=== PATIENT | female | born 1955 | race Caucasian/White ===

== ENCOUNTER 2019-12-18 09:30 | Outpatient (CLI) | payer MEDICARE, MEDICAID, SELFPAY ==
--- NOTE | 2019-12-18 09:39 | CT_ITS ---
WS: [id number] CT CHEST, ABDOMEN AND PELVIS WITHOUT CONTRAST HISTORY: LYMPHADENOPATHY TECHNIQUE: Contiguous 5 mm axial imaging performed through the chest, abdomen and pelvis without IV c ontrast, oral contrast has been provided. Coronal and sagittal reformats chest. Coronal and sagittal reformats through the abdomen and pelvis. All CT scans at [facility] use at least one of these dose optimization techniques: automated exposure control; mA and/or kV adjustment per patient s ize (includes targeted exams where dose is matched to clinical indication); or iterative reconstructi on. CONTRAST: None DLP: 939.24 mGy.cm COMPARISON: 10/31/2018 and 05/12/[address]: Hyperinflated lungs with mild groundglass attenuation. No pulmonary mass or nodule. No pleu ral or pericardial effusion. Mediastinal and hilar lymph nodes are reidentified and unchanged. The la rgest is subcarinal measuring 8 mm. Scattered calcification within the aorta with no aneurysm. Mild c oronary artery calcifications. No cardiomegaly. Small hiatal hernia. Small amount of fluid and oral c ontrast in the distal esophagus. Abdomen CT: Liver and spleen are negative. Gallbladder is slightly contracted. Mildly atrophic pancre as and kidneys. No solid mass identified. No adrenal mass. No free fluid or adenopathy. Moderate calc ification within the aorta. Pelvic CT: No free fluid in the pelvis. Mild thickening of the descending and sigmoid colon with no d iscrete mass. No diverticulosis. Mild RIGHT convex curvature thoracic spine and LEFT convex curvature lumbar spine. Bones are deminera lized. No osteoblastic or osteolytic disease. CT/CT chest abd pel wo con IMPRESSION: 1. No significant lymphadenopathy within the chest, abdomen or pelvis. Benign, subcentimeter hilar and mediastinal lymph nodes are stable. 2. Moderate atherosclerosis aorta. 3. Emphysema. 4. Normal size spleen.
[2019-12-18 10:21] LABS: Basophils # 0.1 10^3/uL (0.0-0.1); Basophils % 0.7 %; Eosinophils # 0.4 10^3/uL (0.0-0.8); Eosinophils % 3.3 %; Hemoglobin 13.8 g/dL (11.5-15.3); Lymphocytes # 1.9 10^3/uL (0.8-4.8); Lymphocytes % 17.8 %; Mean Corpuscular HGB Conc 32.1 g/dL (30.0-36.0); Mean Corpuscular Hemoglobin 29.1 pg (28.0-34.0); Mean Corpuscular Volume 90.7 fL (81-99); Mean Platelet Volume 10.4 fL (7.4-10.4); Monocytes # 0.7 10^3/uL (0.2-0.9); Monocytes % 6.8 %; Neutrophils # 7.4 10^3/uL (1.8-7.7); Neutrophils % 70.9 %; Nucleated Red Blood Cells % 0 %; Platelet Count 187 10^3/cmm (130-400); Red Blood Count 4.74 10^6/uL (4.1-5.3); Red Cell Distribution Width 12.7 % (12.1-15.1); White Blood Count 10.5 10^3/uL (4.0-10.0)
[2019-12-18 10:39] LABS: Alanine Aminotransferase 13 U/L (0-33); Albumin Level 4.2 g/dL (3.5-5.2); Alkaline Phosphatase 95 IU/L (35-105); Anion Gap 18.6 (5-19); Aspartate Amino Transferase 16 U/L (0-32); Blood Urea Nitrogen 26 mg/dL (8-23); Calcium 10.6 mg/dL (8.5-10.5); Carbon Dioxide 26 mmol/L (22-29); Chloride 100 mmol/L (98-107); Globulin 3.2 g/dL (1.3-4.6); Glomerular Filtration Rate 35.2 mL/min (90-130); Glucose 104 mg/dL (65-115); Lactate Dehydrogenase 183 U/L (135-214); Potassium 4.6 mmol/L (3.5-5.1); Sodium 140 mmol/L (136-145); Total Bilirubin 0.3 mg/dL (0.15-1.2); Total Protein 7.4 g/dL (6.6-8.7)
[2019-12-18 11:29] LABS: Erythrocyte Sedimentation Rate 35 mm/hr (0-15)
== END 2019-12-18 09:31 | disposition home or self-care (01) ==
LOC: ONCMED 09:34
PROVIDERS: Family Provider Family Medicine; PCP Family Medicine; Visit Provider Internal Medicine Medical Oncology
DX: R59.1 Generalized enlarged lymph nodes (principal); J43.9 Emphysema, unspecified; I25.10 Atherosclerotic heart disease of native coronary artery without angina pectoris
CPT/HCPCS: 36415; 71250; 74176; 80053; 83615; 85025; 85651

== ENCOUNTER 2019-12-22 15:03 | Outpatient (CLI) | payer MEDICARE, MEDICAID, SELFPAY ==
--- NOTE | 2019-12-26 07:03 | ONC FU_ITS ---
Dr. Knight Patient Follow-Up Note Patient: Jeannette Perry Unit #: [id number]: [id number] Dicatated By: Christopher Knight M.D.Date of Visit:Dec 22, 2019 Onc Med Follow-up/Prog Note Chief Complaint: Lymphadenopathy. History of Present Illness: This is a 64 year-old woman with scleroderma and lymphadenopathy. A left submandibular lymph node biopsy in April 2018 was felt to be consistent with Deepa lymphadenopathy. She was diagnosed with scleroderma at least 15 years ago. At one time she did have methotrexate therapy for about a year. She has otherwise not been on any specific treatment. On 05/12/2018 she had presented to the emergency room with multiple complaints including weakness, chills, and muscle aches. She was noted to have a left submandibular region mass. Neck CT confirmed the presence of a left submandibular gland space soft tissue mass with edema of the overlying soft tissue and skin. There were additional shotty subcentimeter lymph nodes bilaterally. A 2.1 x 1.6 cm left thyroid gland nodule appeared to be consistent with non-simple cyst. Also noted were numerous bilateral axillary and mediastinal subcentimeter shotty lymph nodes, felt to be nonspecific. There was evidence of severe emphysema in the upper lung matthew. Her CT abdomen/pelvis at that time showed mild splenomegaly and nonspecific mesenteric, retroperitoneal, and inguinal subcentimeter shotty lymph nodes. There were no acute intra-abdominal/pelvic findings. On 05/14/2018 she underwent excisional biopsy of the enlarged left submandibular lymph node by Dr. Diaz Wilde in [place]. Pathology showed a disrupted lymph node with a mixed inflammatory background of histiocytes, lymphoplasmacytic cells, eosinophils, and scattered neutrophils. The immunostains showed an increased fraction of CD30 positive immunoblasts with numerous CD15 positive eosinophils and neutrophils. Flow cytometry showed a small population of CD5 positive monoclonal B cells suggesting CLL/SLL, though it comprised only 1% of the total cellularity. Review of the pathology by Dr. Serrato at [facility] [employer] resulted in a final diagnosis of Deepa lymphadenopathy. Following the lymph node biopsy, she had changes in her pain regimen and she was then admitted to the hospital on 06/04/2018 after experiencing an allergic reaction to methadone. She apparently also had suspected reaction to oxycodone. Her pain medication was subsequently transitioned to hydromorphone with no adverse effects. I had seen her initially on 06/27/2018. Her subsequent laboratory evaluation was unrevealing with the exception that her IgE level did come back slightly elevated at 130.00 mg/dL. In the absence of any evidence of malignancy, I had just recommended observation/expectant management. Her medical illnesses, in addition to the scleroderma and anemia, include hypertension, chronic kidney disease, hypothyroidism, GERD, and COPD. She does have history of smoking for 45 years, previously up to 1 1/2 packs of cigarettes daily. She had cut down to 1/2 pack per day. INTERIM HISTORY: Repeat CT scans of the chest, abdomen, and pelvis on 10/31/2018 showed significant improvement in the size and number of previously described supraclavicular, axillary, and mediastinal lymphadenopathy compared to the study from April 2018. Spleen was noted to have decreased in size from 13.1-11.1 cm. There was no significant adenopathy noted within the mesentery, retroperitoneum, or inguinal regions. A complex cluster of cysts within the left thyroid gland were noted to be stable. She continued observation/expectant management. Her repeat CT scans on 12/18/2019 showed no significant lymphadenopathy within the chest, abdomen, or pelvis. Benign-appearing subcentimeter hilar and mediastinal lymph nodes were stable. She is seen for a follow-up visit. She complains that she feels tired all the time. She feels that there has been some decline in her energy, but she is able to do light work. Her ECOG score is 1. Her appetite comes and goes. Her weight is up a few pounds since her last visit. She does not have fever or night sweats. She has had some difficulty swallowing, and she says she has been choking quite a bit. She has some sinus drainage and a little bit of cough. She occasionally brings up light sputum. She has early satiety, and she has had nausea/vomiting off and on for quite a while. She has mild constipation. She was having some difficulty voiding, but that has improved. She is seeing Dr. Wilson. She has constant pain, but it is adequately managed with hydromorphone. Lately she has been having some headaches and she also has had a little bit of lightheadedness. She has numbness/tingling in her feet all the time. Medications: Allopurinol 1 Tablet (of 100 mg) Oral daily, HYDROmorphone HCl 1 - 2 Tablet (of 4 mg) Oral four times a day PRN, Levothyroxine Sodium 1 Tablet (of 125 mcg) Oral daily, Lisinopril 1 Tablet (of 2.5 mg) Oral daily, Omeprazole 1 Capsule (of 20 mg) Capsule Delayed Release Oral daily, predniSONE 1 Tablet (of 2.5 mg) Oral daily, Propranolol HCl 1 Tablet (of 20 mg) Oral b.i.d. Allergies: Nitro-Bid, Oxybutynin Chloride, and Penicillins. Review of Systems: Constitutional - She complained that she is tired all the time, and she feels that her energy has declined somewhat, but she is doing light work. Her ECOG score is 1. Her appetite comes and goes. Her weight is up a few pounds since last visit. No fever, chills, hot flashes, or night sweats. ECOG score is 1, ENMT - She does have some sinus drainage. No mouth sores. She is having some difficulty swallowing, and she has had choking quite a bit, Hematologic/Lymphatic - No abnormal bruising or bleeding, Respiratory - No shortness of breath. She has a slight productive cough with light yellow sputum. No pleuritic pain or hemoptysis, Cardiovascular - No angina pain. No palpitations. She has recently had issues with hypertension, but her primary care physician has changed her medications to control it, Gastrointestinal - She has occasional episodes of nausea and vomiting. No heartburn or acid reflux. No diarrhea or constipation. No blood in the stool or black stools, Genitourinary (F) - No dysuria or hematuria. She has some frequency. No urgency or incontinence. She is seeing Dr. Wilson for urinary issues, Musculoskeletal - She has generalized pain. It is adequately managed with hydromorphone, Integumentary - She has skin problems associated with the scleroderma, Neurologic - No reported headache. She occasionally has dizziness. No numbness/paresthesias or other focal neurologic symptoms, Psychiatric - No anxiety or depression. She reports insomnia. Vital Signs: Performed on Dec 22, 2019 15:15 Height - 64.00 in Weight - 122.4 lbs (HIGH) BSA - 1.59 sq.m BMI - 21.01 Temperature - 98.9 F (HIGH) Pulse - 76 /min Respiration - 18 /min BP - 178/86 mm(hg) (HIGH) O2 Sat - 99 % Pain - 3 Physical Examination: Constitutional - She appears somewhat weak generally, Eyes - Sclerae nonicteric. Conjunctivae clear, ENMT - There are no lesions noted in the oral cavity, Hematologic/Lymphatic - There is a small residual nodule at the biopsy site in the left submandibular area. I do not feel any cervical, clavicular, or axillary adenopathy, Respiratory - Lungs are clear with diminished air movement bilaterally, Cardiovascular - Heart rhythm is regular. There is no murmur, gallop or rub noted, Abdomen - Soft. Liver and spleen are not enlarged. There is no abdominal mass or ascites noted and there is no inguinal adenopathy, Extremities - No edema. 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 Lab/Imaging: Test performed on Dec 18, 2019 10:15 LDH (Total) 183 U/L Sodium 140 mmol/L Potassium 4.6 mmol/L Chloride 100 mmol/L CO2 26 mmol/L Anion Gap 18.6 BUN 26 mg/dL Creatinine 1.5 mg/dL Cr Clearance (Est) 32.3600 mL/min eGFR 35.2 mL/min Glucose 104 mg/dL Calcium 10.6 mg/dL Protein, Total 7.4 g/dL Albumin 4.2 g/dL Globulin 3.2 g/dL Bilirubin, Total 0.3 mg/dL ALT (SGPT) 13 U/L AST (SGOT) 16 U/L Alkaline Phosphatase 95 IU/L ESR (Sed Rate) 35 mm/hr WBC 10.5 10 3/uL RBC 4.74 10 6/uL HGB 13.8 g/dL HCT 43.0 % MCV 90.7 fL MCH 29.1 pg MCHC 32.1 g/dL RDW 12.7 % Platelet Count 187 10 3/cmm MPV 10.4 fL Neutrophils 7.4 10 3/uL Lymphocytes 1.9 10 3/uL Monocytes 0.7 10 3/uL Eosinophils 0.4 10 3/uL Basophils 0.1 10 3/uL Neutrophil % 70.9 % Lymphocyte % 17.8 % Monocyte % 6.8 % Eosinophil % 3.3 % Basophils % 0.7 % Impression: 1. Patient recently presented with enlargement of a left submandibular lymph node. Excisional biopsy on 05/14/2018 was felt to be consistent with Deepa lymphadenopathy. Pathology findings included increased CD30 positive immunoblasts and numerous CD15 positive eosinophils and neutrophils by immunostaining. 2. She has evidence of widespread, subcentimeter shotty lymphadenopathy by CT scan. The clinical significance of that finding is uncertain. 3. Her lymph node biopsy also showed a very small population of monoclonal CD5 positive B cells suggesting possible CLL/SLL. The clinical significance also is uncertain. 4. She has long-standing scleroderma. 5. She has a mild, chronic anemia. Her other medical illnesses include: 6. COPD. 7. Hypertension. 8. Chronic kidney disease. 9. GERD. 10. Hypothyroidism. 11. She reportedly had evidence of a pulmonary nodule on the prior CT scan, though none was reported on her chest CT from November 2016. She has been followed on observation/expectant management. Her repeat CT scans in October 2018 had shown significant improvement in the lymphadenopathy. Her current CT scans just show stable, benign-appearing, subcentimeter hilar and mediastinal lymph nodes. She does appear to be having some difficulty swallowing, and she reports having some associated choking. This would most likely be related to the underlying scleroderma. She otherwise appears stable clinically. Plan: She remains on observation/expectant management. She will be scheduled for a modified barium swallow for evaluation of the dysphagia and choking. She will have further evaluation as indicated. I will see her again in one year, or sooner as needed. Signed By: Christopher Knight M.D. <<Signature on File>>
== END 2019-12-22 15:04 | disposition home or self-care (01) ==
LOC: ONCMED 15:05
PROVIDERS: Family Provider Family Medicine; PCP Family Medicine; Visit Provider Internal Medicine Medical Oncology
DX: D36.0 Benign neoplasm of lymph nodes (principal); M34.9 Systemic sclerosis, unspecified; J44.9 Chronic obstructive pulmonary disease, unspecified; I12.9 Hypertensive chronic kidney disease with stage 1 through stage 4 chronic kidney disease, or unspecified chronic kidney disease; K21.9 Gastro-esophageal reflux disease without esophagitis; E03.9 Hypothyroidism, unspecified; R13.10 Dysphagia, unspecified; F17.210 Nicotine dependence, cigarettes, uncomplicated; D63.1 Anemia in chronic kidney disease; Z79.52 Long term (current) use of systemic steroids; Z86.711 Personal history of pulmonary embolism
CPT/HCPCS: 99214

== ENCOUNTER 2020-06-03 11:31 | Outpatient (CLI) | payer MEDICARE, MEDICAID, SELFPAY ==
--- NOTE | 2020-06-03 | XR_ITS ---
WS: [id number] EXAM: Chest: PA and lateral DATE OF EXAMINATION: 06/03/2020, 1214 hours COMPARISON: Chest x-ray from 01/20/2019 HISTORY: Patient is 64 years old with history of scleroderma. Complaining of fatigue. Assess for pneumonia.. FINDINGS: The heart size is normal. The mediastinal contours are are similar. Slight calcified plaque in the a jose d.. Pulmonary vascularity is within normal limits. Chronic lung changes are demonstrated. There a ppears be loss of lung parenchyma in the upper and mid lung zones. Appears is some minimal linear ate lectasis or scarring right mid and lower lung. No area of consolidation. No effusion, or pneumothorax . Bone density is normal in appearance. XR/XR chest 2V* [id number] IMPRESSION: Chronic lung changes demonstrated with slight hyperinflation. No findings of a consolidative infiltrate to suggest a pneumonia.
== END 2020-06-03 11:32 | disposition home or self-care (01) ==
LOC: RADWPI 11:35
PROVIDERS: Family Provider Family Medicine; PCP Family Medicine; Visit Provider Family Medicine
DX: J18.9 Pneumonia, unspecified organism (principal); R53.83 Other fatigue; M34.9 Systemic sclerosis, unspecified
CPT/HCPCS: 71046

== ENCOUNTER 2020-09-21 09:28 | Outpatient (CLI) | payer MEDICARE, MEDICAID, SELFPAY ==
--- NOTE | 2020-09-21 09:44 | US_ITS ---
WS: [id number] RIGHT UPPER QUADRANT ULTRASOUND HISTORY: VOMITING/EPIGASTRIC PAIN COMPARISON: 06/24/2019 Liver: 15.2 cm in length. Normal size liver. No bile duct dilatation or mass. Gallbladder: Normally distended gallbladder. There is a single calcification within the gallbladder m easuring 5 mm. No wall thickening or pericholecystic fluid. CBD: 0.6 cm Pancreas: Normal size and echogenicity. Right kidney: 9.1 cm in length. Normal size and echogenicity. No hydronephrosis or mass. Aorta and IVC: Unremarkable abdominal aorta and IVC. No ascites. US/US gall bladder 63115 IMPRESSION: 1. Cholelithiasis without acute cholecystitis. 2. Otherwise negative.
== END 2020-09-21 09:29 | disposition home or self-care (01) ==
LOC: RAD 09:33
PROVIDERS: PCP Family Medicine; Visit Provider Family Medicine
DX: R11.10 Vomiting, unspecified (principal); R10.13 Epigastric pain; K80.20 Calculus of gallbladder without cholecystitis without obstruction
CPT/HCPCS: 76705

== ENCOUNTER → 2020-09-28 11:22 | Outpatient (BNVA) | payer MEDICARE, MEDICAID, SELFPAY | PROVIDERS: PCP Family Medicine; Visit Provider Surgery | DX: K80.20 Calculus of gallbladder without cholecystitis without obstruction (principal); Z11.59 Encounter for screening for other viral diseases | CPT/HCPCS: 87635 ==

== ENCOUNTER 2020-10-04 08:17 | Day surgery (SDC) | payer MEDICARE, MEDICAID, SELFPAY ==
[2020-10-01 12:44] VITALS: BMI 19.5
[2020-10-04] VITALS (13 sets, daily range): BP systolic 159–206; BP diastolic 82–123; PULSE 59–93; RESP 16–28; TEMP 36.2–37.3; O2SAT 92–100
[2020-10-04] MEDS: sodium chloride 0.9% 1,000 ML 30 ML IV (08:26)
--- NOTE | 2020-10-04 08:58 | W.PM.OPSUD ---
Surgery/Procedure H&P Update DATE OF PROCEDURE: October 04, 2020 DATE H&P PERFORMED: 09/27/20 H&P UPDATE INFORMATION: I have reviewed H&P completed within last 30 days, I have examined patient prior to procedure and No changes to prior documentation PREOP DIAGNOSIS: gallstones PLANNED PROCEDURE: Operation Date: 10/04/20 09:35 Proposed Procedures p Laparoscopic poss Open Cholecystectomy 16128 K80.20(Not Applicable) - Jameson Recio MD
--- NOTE | 2020-10-04 09:49 | P.ANESASSM_ITS ---
Pre-Anesthetic Assessment Pre-Anesthetic Assessment: Height/Weight: Height 1.63 m Weight 51.71 kg Temp Pulse Resp BP Pulse Ox 99.1 F 72 18 159/104 98 10/04/20 08:52 10/04/20 08:52 10/04/20 08:52 10/04/20 08:52 10/04/20 08:52 Preop Diagnosis: gallstones Proposed Procedure: Operation Date: 10/04/20 09:35 Proposed Procedures p Laparoscopic poss Open Cholecystectomy 43600 K80.20(Not Applicable) - Jameson Rceio MD Was Beta Ct taken within 24 hours: Yes Last intake: Intake Last Liquid Date 10/03/20 Last Liquid Time 18:30 Last Solid Date 10/03/20 Last Solid Time 18:30 Social: Social History: Tobacco and No tobacco Exam: Pre-Anes Outpt Exam: alert, oriented x 3, clear to auscultation bilaterally and regular rate & rhythm Airway: Submandibular: WNL Cervical ROM: WNL MP: 2 Dentition: False Additional comments: Small mouth opening Pulmonary: Pulmonary: COPD CV/HEM: CV/HEM: None reported : : None reported Hepatic: Hepatic: None reported GI: GI: GERD [facility] [place]el: Comments: Schleroderma--chronic steroids Neuropsych: Neuropsych: None reported Anesthetic Plan: ASA status: 3 Anesthesia: General Risk of > 500 ml blood loss (7ml/kg in children): No Meds/Allergies Current Medications: Current Medications Generic Name Dose Route Start Last Admin Trade Name Freq PRN Reason Stop Dose Admin Sodium Chloride 1,000 mls @ 30 ml s/hr 10/04/20 07:30 10/04/20 08:26 Sodium Chloride 0.9% IV 10/05/20 07:29 30 mls/hr .Q24H OK Administration PFSH Anesthesia PFSH: Medical History Cystitis cystica Recurrent UTI Scleroderma Surgical History (Updated 10/04/20 @ 09:10 by Jameson Recio MD) H/O bladder repair surgery Lift H/O neck surgery cyst excised H/O: hysterectomy History of gastric surgery Status post laparoscopic cholecystectomy (10/04/20) Family History Family/Other Diabetes Cancer Stroke CAD (coronary artery disease) Hypertension Denies family history of Anesthesia complication Bleeding disorder Social History Smoking and tobacco status: current every day smoker Alcohol intake: never Lives independently: Yes Household members: family Marital status: Current occupational status: retired and disabled History of recent travel: No Data Anesthesia Cardiac Studies: No Data to Display
[2020-10-04] MEDS: ciprofloxacin 400 MG/200 ML PREMIX 200 MG IV (10:00)
[2020-10-04] MEDS: fentaNYL 50 mcg/mL INJ 2mL IVP (11:27)
--- NOTE | 2020-10-04 11:51 | SUR.PHASEI ---
1102 PT TO PACU AWAKE RESTLESS MOANING,C/O OF PAIN BP ELEVATED PT HOB ELEVATED TO 30 DEGREES, RESP AT 22-24 , SEE MED GIVEN BY DRAPERY HANGER AT BEDSIDE FOR ELEVATED BP, AND STATES PT GETS RESTLESS WHEN COLD, PT C/O OF PAIN , WARM BLANKETS TO PT, HOLDING PT ARM FOR MORE ACCURATE BP. 1120 PT C/O OF BLANKETS HEAVY AND PAIN OF 9 TO ABD PT STILL RESTLESS, DR QUINTANA AT BEDSIDE AND SEE SUGAMADEX GIVEN BY AT BEDSIDE. 1127 PT QUIET NOW VERY ALERT COUGHS SEVERAL TIMES WITH LARGE AMT CLEAR SECRETIONS NOTED SATS MAINTAINED NOW ON 3LNC FOR COMFORT, PT DENIES NAUSEA BUT RATES PAIN TO ABD AT 9 SEE PAIN MED GIVEN 1135 PT SLEEPS IF NOT DISTURBED HOB AT 45 DEGREES , RESP EVEN AND UNLABORED. VSS. IF AWAKENED PT C/O OF PAIN TO ABD OF 9 BUT QUICLY BACK TO SLEEP FACE SCALE 2
--- NOTE | 2020-10-04 11:57 | SUR.PHASEI ---
1144 HANDOFF AT BEDSIDE PT AWAKES EASILY REQUESTS WATER TO SIP ON , VSS. ABD SOFT WITH 4 SITES D/I
--- NOTE | 2020-10-04 12:04 | ANE.PACU2 ---
Inpatient post-anesthesia follow up: Airway intact: Yes Vital signs: Temperature 97.1 F Pulse Rate 59 Respiratory Rate 18 Blood Pressure 163/89 Pulse Oximetry 95 Oxygen Delivery Me thod Room Air Oxygen Flow Rate 3 Fraction of Inspir ed Oxygen Hydration adequate: Yes Nausea and vomiting: No Pain level: 2 Additional Comments: Sedated, some residual paralysis in PACU-suggamadex given.
[2020-10-04] MEDS: HYDROcodone-acetaminophen 5-325 mg Tablet 1 TAB PO (12:14)
--- NOTE | 2020-10-04 12:49 | PM.OP ---
Operative Report Date of procedure: October 04, 2020 Pre-op Diagnosis: gallstones Post-op diagnosis: same Procedure Done: Laparoscopic cholecystectomy Specimens removed/disposition: Gallbladder Surgeon: Jameson Recio Anesthesia: General Estimated blood loss (mL): 10 Condition: stable Disposition: PACU Procedure: The patient was taken to the operating room and was intubated under general anesthesia. After the antibiotic had been administered, the abdomen was prepped and draped in a sterile manner. Using a #15 blade, a 1 centimeter infraumbilical curvilinear incision was made and using an open Kirt technique the peritoneal cavity was entered. A 10 millimeter port was placed and 15 millimeters of pneumoperitoneum was created. A 10 millimeter, 30 degrees scope was then introduced. Three 5 millimeter ports were placed in the epigastric, midclavicular and the anterior axillary line two fingerbreadths below the costal margin on the right side under the direct visualization. Ratcheted forceps were introduced into the lateral most port and was used to retract the fundus of the gallbladder cephalad and using forceps the infundibulum of the gallbladder was retracted laterally. During dissection there was a tear in the body of the gallbladder where it was retracted laterally with spillage of bile which was irrigated and suctioned out. There was no spillage of stones. Using L-hook cautery the peritoneum overlying the Calot's triangle was opened medially and laterally until the cystic duct and the cystic artery were skeletonized. Dissection was carried along the body of the gallbladder and after ensuring critical view of safety, 4 clips applied on the cystic duct and 3 clips applied on the cystic artery and cut leaving, 3 clips on the remaining portion of the duct and 2 clips on the remaining portion of the artery. The rest of the gallbladder was dissected off the liver using L-hook cautery. There was no bleeding or bile leaking noted from the gallbladder fossa and the clips appeared to be in place. An EndoCatch bag was introduced to remove the gallbladder. All the ports were removed under direct visualization and there was no bleeding noted from the port sites. The fascia of the umbilicus was closed using [id number] 0 Vicryl sutures and the subcutaneous tissue was approximated using 3-0 Vicryl sutures. The skin at all four ports were closed using 4-0 Monocryl and Dermabond. A total of 10 millimeters of 0.5% Marcaine was infiltrated around the port sites. The patient was stable throughout the procedure.
== END 2020-10-04 12:56 | disposition home or self-care (01) ==
PROVIDERS: PCP Family Medicine; Visit Provider Surgery
PROC: 0FT44ZZ Resection of Gallbladder, Percutaneous Endoscopic Approach (ICD-10-PCS; CPT 47562; principal; 2020-10-04 09:35)
DX: K80.10 Calculus of gallbladder with chronic cholecystitis without obstruction (principal); J44.9 Chronic obstructive pulmonary disease, unspecified; F17.210 Nicotine dependence, cigarettes, uncomplicated; Z79.52 Long term (current) use of systemic steroids
CPT/HCPCS: 47562; 12345; 88304; J0744; J1100; J2405; J2704; J3010; J3490; J7030

== ENCOUNTER 2021-08-13 16:56 | Emergency (ER) | payer MEDICARE, MEDICAID, SELFPAY ==
[2021-08-13 17:09] VITALS: BP 144/108; PULSE 93; RESP 18; TEMP 36.8; BMI 20.9
[2021-08-13 19:01] VITALS: PULSE 78
[2021-08-13 19:03] VITALS: PULSE 78; RESP 18; O2SAT 96
--- NOTE | 2021-08-13 19:14 | ED_ITS ---
Documented by User: TAQUERIA Wasserman 08/13/21 20:25 HPI - Extremity Problem General: Chief complaint: Extremity Injury, Lower Stated complaint: R LEG PAIN, FALL ON 08/12 Time Seen by Provider: 08/13/21 19:14 History of Present Illness: HPI Narrative: 66-year-old female comes in today with complaints of right thigh pain. Patient states that last night she slipped and fell causing her legs to do this splits . Patient reports feeling a pop within her thigh. Patient does have a history of scleroderma and takes routine pain medications. Review of Systems General: Reports: 10 or more systems reviewed and unremarkable except in HPI and below Musc: Reports: other (Right upper leg pain.) PFSH ED PFSH: Medical History (Updated 08/13/21 @ 20:23 by TAQUERIA Wasserman) Cystitis cystica Recurrent UTI Scleroderma Surgical History (Updated 10/22/20 @ 16:11 by Jameson Recio MD) H/O bladder repair surgery Lift H/O neck surgery cyst excised H/O: hysterectomy History of gastric surgery Status post laparoscopic cholecystectomy (10/04/20) Family History Family/Other Diabetes Cancer Stroke CAD (coronary artery disease) Hypertension Denies family history of Anesthesia complication Bleeding disorder Social History Smoking and tobacco status: current every day smoker Alcohol intake: never Lives independently: Yes Household members: family Marital status: Current occupational status: retired and disabled History of recent travel: No Physical Exam Const: COMMON NORMALS: no acute distress and patient oriented x3 GENERAL APPEARANCE: cooperative HENMT: COMMON NORMALS: normocephalic and Normal external nose present HEAD & SCALP: normal to inspection and normocephalic NOSE: Normal external nose present MOUTH: Normal oral and palatal mucosa present Eye: GENERAL EYE: appearance normal, both eyes and all related structures Neck/C-Spine: COMMON NORMALS: full ROM Chest: COMMONS NORMALS: normal inspection of the chest Resp: COMMON NORMALS: normal respiratory effort EFFORT & INSPECTION: Yes able to speak in complete sentences Cardio: COMMON NORMALS: regular rate and regular rhythm RATE: regular rate RHYTHM: regular rhythm GI: COMMON NORMALS: non-tender Back/Pelvis: LUMBAR SPINE/LOWER BACK: Yes lumbar spinal tenderness Lumbar spinal tenderness location: L5 and Yes paraspinal muscle spasm Extremity: NARRATIVE EXTREMITY EXAM: No obvious deformity is noted to the right lower extremity. Patient has good range of motion of the knee. Patient has tenderness to the right thigh. Patient has scleroderma with chronic changes to the hands and joints. Neuro: COMMON NORMALS: patient oriented x3 and moves all extremities Psych: COMMON NORMALS: mental status grossly normal and cooperative Skin: NARRATIVE SKIN EXAM: Patient has scleroderma with chronic skin changes. Course Vital Signs: Vital signs: Vital Signs Temperature 98.2 F 08/13/21 17:09 Pulse Rate 76 08/13/21 20:36 Respiratory Rate 18 08/13/21 20:36 Blood Pressure 144/108 08/13/21 17:09 Pulse Oximetry 96 08/13/21 20:36 MDM - Extremity (Nontraumatic) MDM Narrative: Medical decision making narrative: 66-year-old female comes in today with complaints of right hip injury. Patient had done the splits yesterday after she had slipped. Patient reported pain in the right thigh. On exam there is tenderness to the lateral right hip. Patient also has some tenderness to the low back on the right side. Differential diagnosis includes but not limited to fracture, sprain, contusion. X-ray noted no fracture or dislocation of the hip. X-rays of the lumbar spine and the pelvis were also negative for any abnormalities. Reviewed exam with patient with recommendations for treatment and follow-up. Patient was given 1 dose of hydromorphone in the ER which assisted with her pain control. Patient does take hydromorphone routinely at home and will continue with her prescription as directed. Patient was also recommended to use acetaminophen and ibuprofen for breakthrough pain. And heat for further comfort. Follow-up with primary care was recommended. Discharge Plan Discharge Patient Disposition: Home Clinical Impression: Strain of hip Qualifiers: Encounter type: initial encounter Laterality: right Qualified Code(s): S76.011A - Strain of muscle, fascia and tendon of right hip, initial encounter Condition: Stable Prescriptions: No Action lisinopril 2.5 mg tablet 5 mg PO DAILY RF: 0 hydromorphone [Dilaudid] 4 mg tablet 4 mg PO Q6H PRN (Reason: Pain) RF: 0 levothyroxine 125 mcg capsule 125 mcg PO DAILY RF: 0 propranolol 20 mg tablet 20 mg PO BID RF: 0 allopurinol 100 mg tablet 100 mg PO DAILY RF: 0 clonazepam 0.5 mg tablet 0.25 mg PO .prn RF: 0 omeprazole 20 mg capsule,delayed release(DR/EC) 20 mg PO BID RF: 0 ondansetron HCl 4 mg tablet 4 mg PO QID PRN (Reason: nausea) RF: 0 Zofran 4 mg tablet 4 mg PO Q6H PRN (Reason: nausea and vomiting) Qty: 20 RF: 0 Colace 100 mg capsule 100 mg PO BID Qty: 30 RF: 0 Discharge Orders: Discharge ED (Routine); Ordered 08/13/21 Ordered By: Gerson Dougherty Referrals: Reilly Ashby MD [Primary Care Provider] - Discharge Diet: Usual diet Discharge Activity: Increase activity as tolerated Patient Instructions: Musculoskeletal Pain (ED), Opioid Safety Activity Restrictions/Additional Instructions: Activity as tolerated. Use a walker if needed to help with ambulation. Drink plenty of water with medication. Healthy diet and activity. Follow-up with primary care for further complaints. Return to the ER for new concerns. Radiology will review x-rays and will contact you if any other abnormalities is noted. Coding Level of Care Code ED Phlebotomist Lab Assistant for Chg Fwd Exam Comprehensive Documented by User: Diallo Christianson DO 08/13/21 21:35 HPI - Extremity Problem General: Chief complaint: Extremity Injury, Lower Stated complaint: R LEG PAIN, FALL ON 08/12 Time Seen by Provider: 08/13/21 19:14 PFSH ED PFSH: Medical History (Updated 08/13/21 @ 20:23 by TAQUERIA Wasserman) Cystitis cystica Recurrent UTI Scleroderma Surgical History (Updated 10/22/20 @ 16:11 by Jameson Recio MD) H/O bladder repair surgery Lift H/O neck surgery cyst excised H/O: hysterectomy History of gastric surgery Status post laparoscopic cholecystectomy (10/04/20) Family History Family/Other Diabetes Cancer Stroke CAD (coronary artery disease) Hypertension Denies family history of Anesthesia complication Bleeding disorder Social History Smoking and tobacco status: current every day smoker Alcohol intake: never Lives independently: Yes Household members: family Marital status: Current occupational status: retired and disabled History of recent travel: No Course Vital Signs: Vital signs: Vital Signs Temperature 98.2 F 08/13/21 17:09 Pulse Rate 76 08/13/21 20:36 Respiratory Rate 18 08/13/21 20:36 Blood Pressure 144/108 08/13/21 17:09 Pulse Oximetry 96 08/13/21 20:36 MDM - Extremity (Nontraumatic) MDM Narrative: Medical decision making narrative: This patient was originally seen by TAQUERIA Wade. I agree with his history, evaluation, and treatment. Discharge Plan Discharge Patient Disposition: Home Clinical Impression: Strain of hip Qualifiers: Encounter type: initial encounter Laterality: right Qualified Code(s): S76.011A - Strain of muscle, fascia and tendon of right hip, initial encounter Condition: Stable Prescriptions: No Action lisinopril 2.5 mg tablet 5 mg PO DAILY RF: 0 hydromorphone [Dilaudid] 4 mg tablet 4 mg PO Q6H PRN (Reason: Pain) RF: 0 levothyroxine 125 mcg capsule 125 mcg PO DAILY RF: 0 propranolol 20 mg tablet 20 mg PO BID RF: 0 allopurinol 100 mg tablet 100 mg PO DAILY RF: 0 clonazepam 0.5 mg tablet 0.25 mg PO .prn RF: 0 omeprazole 20 mg capsule,delayed release(DR/EC) 20 mg PO BID RF: 0 ondansetron HCl 4 mg tablet 4 mg PO QID PRN (Reason: nausea) RF: 0 Zofran 4 mg tablet 4 mg PO Q6H PRN (Reason: nausea and vomiting) Qty: 20 RF: 0 Colace 100 mg capsule 100 mg PO BID Qty: 30 RF: 0 Discharge Orders: Discharge ED (Routine); Ordered 08/13/21 Ordered By: Gerson Dougherty Referrals: Reilly Ashby MD [Primary Care Provider] - Discharge Diet: Usual diet Discharge Activity: Increase activity as tolerated Patient Instructions: Musculoskeletal Pain (ED), Opioid Safety Activity Restrictions/Additional Instructions: Activity as tolerated. Use a walker if needed to help with ambulation. Drink plenty of water with medication. Healthy diet and activity. Follow-up with primary care for further complaints. Return to the ER for new concerns. Radiology will review x-rays and will contact you if any other abnormalities is noted. Coding Level of Care Code ED Phlebotomist Lab Assistant for Franko Fwd Exam Comprehensive
--- NOTE | 2021-08-13 19:16 | XRR_ITS ---
PROCEDURE INFORMATION: Exam: XR Pelvis Exam date and time: 08/13/2021 7:16 PM Age: 66 years old Clinical indication: Injury or trauma; Fall; Blunt trauma (contusions or hematomas); Right; Hip TECHNIQUE: Imaging protocol: XR pelvis. Views: 1 or 2 view. COMPARISON: CT chest abd pel wo con 12/18/2019 11:29 AM FINDINGS: Bones/joints: Unremarkable. No acute fracture. Soft tissues: Unremarkable. Gastrointestinal tract: Moderate retained feces. XR/XR pelvis 1-2V* [id number] IMPRESSION: 1. No acute findings. 2. If pain persists, CT may be helpful to rule out occult pathology if clinically indicated. Radiation Dose CTDIVOL = (mGy): DLP = (mGy-cm)
--- NOTE | 2021-08-13 19:17 | XRR_ITS ---
PROCEDURE INFORMATION: Exam: XR Right Femur Exam date and time: 08/13/2021 7:17 PM Age: 66 years old Clinical indication: Injury or trauma; Fall; Blunt trauma; Thigh or upper leg; Right TECHNIQUE: Imaging protocol: XR Right femur. Views: 2 views. COMPARISON: CT chest abd pel wo con 12/18/2019 11:29 AM FINDINGS: Bones/joints: Unremarkable. No acute fracture. Soft tissues: Unremarkable. XR/XR femur RT min 2V* [id number] IMPRESSION: No acute findings. Radiation Dose CTDIVOL = (mGy): DLP = (mGy-cm)
--- NOTE | 2021-08-13 19:19 | XRR_ITS ---
PROCEDURE INFORMATION: Exam: XR Lumbosacral Spine Exam date and time: 08/13/2021 7:19 PM Age: 66 years old Clinical indication: Injury or trauma; Fall; Blunt trauma (contusions or hematomas) TECHNIQUE: Imaging protocol: XR of the lumbosacral spine. Views: 2 or 3 views. COMPARISON: CT chest abd pel wo con 12/18/2019 11:29 AM FINDINGS: Bones/joints: Low density bone consistent with osteopenia/osteoporosis. Soft tissues: Unremarkable. Intraperitoneal space: Surgical clips in the gallbladder fossa consistent with cholecystectomy. Vasculature: Calcification of the abdominal aorta and/or iliac arteries consistent with atherosclerotic vessel disease. XR/XR lumbar spine 2-3V* [id number] IMPRESSION: 1. Low density bone consistent with osteopenia/osteoporosis. 2. No acute findings. 3. If pain persists, CT may be helpful to rule out occult pathology if clinically indicated. Radiation Dose CTDIVOL = (mGy): DLP = (mGy-cm)
[2021-08-13 19:28] VITALS: RESP 18; O2SAT 96
[2021-08-13] MEDS: HYDROmorphone 1 mg/mL INJ 1 mL IM (19:28)
[2021-08-13 20:36] VITALS: PULSE 76; RESP 18; O2SAT 96
== END 2021-08-13 20:37 | disposition home or self-care (01) ==
PROVIDERS: Emergency Provider Nurse Practitioner Family; PCP Family Medicine
DX: S76.011A Strain of muscle, fascia and tendon of right hip, initial encounter (principal); W19.XXXA Unspecified fall, initial encounter; M54.50 Low back pain, unspecified; Z72.0 Tobacco use
CPT/HCPCS: 72100; 72170; 73552; 96372; 99283; J1170

== ENCOUNTER → 2022-02-06 14:50 | Outpatient (BNVA) | payer MEDICARE, MEDICAID, SELFPAY | PROVIDERS: PCP Family Medicine; Visit Provider Podiatrist Foot & Ankle Surgery | DX: L85.1 Acquired keratosis [keratoderma] palmaris et plantaris (principal); F17.210 Nicotine dependence, cigarettes, uncomplicated | CPT/HCPCS: 17110 ==

== ENCOUNTER → 2022-04-03 09:57 | Outpatient (BNVA) | payer MEDICARE, MEDICAID, SELFPAY | PROVIDERS: PCP Family Medicine; Visit Provider Podiatrist Foot & Ankle Surgery | DX: L85.1 Acquired keratosis [keratoderma] palmaris et plantaris (principal); M79.671 Pain in right foot; M79.672 Pain in left foot; L84 Corns and callosities | CPT/HCPCS: 17110 ==

== ENCOUNTER → 2022-08-23 12:47 | Outpatient (BNVA) | payer MEDICARE, MEDICAID, SELFPAY | PROVIDERS: PCP Family Medicine; Visit Provider Family Medicine | DX: L85.1 Acquired keratosis [keratoderma] palmaris et plantaris (principal); Z00.00 Encounter for general adult medical examination without abnormal findings; I10 Essential (primary) hypertension | CPT/HCPCS: 80053; 80061; 84443; 85025 ==

== ENCOUNTER 2022-10-23 13:17 | Outpatient (CLI) | payer MEDICARE, MEDICAID, SELFPAY ==
--- NOTE | 2022-10-23 13:21 | XRR_ITS ---
PROCEDURE INFORMATION: Exam: XR Chest Exam date and time: 10/23/2022 1:27 PM Age: 67 years old Clinical indication: Cough and shortness of breath TECHNIQUE: Imaging protocol: Radiologic exam of the chest. Views: 2 views. COMPARISON: CR XR chest 2V* [id number] 06/03/2020 12:09 PM FINDINGS: Lungs: Lungs are hyperinflated consistent with COPD with evidence of upper lobe emphysematous changes. There are no infiltrates or overt CHF. Pleural spaces: Unremarkable. No pleural effusion. No pneumothorax. Heart/Mediastinum: Unremarkable. No cardiomegaly. Bones/joints: Demineralized but otherwise unremarkable. XR/XR chest 2V* [id number] IMPRESSION: COPD with upper lobe emphysematous changes, otherwise negative chest.
== END 2022-10-23 13:18 | disposition home or self-care (01) ==
PROVIDERS: PCP Family Medicine; Visit Provider Family Medicine
DX: J06.9 Acute upper respiratory infection, unspecified (principal)
CPT/HCPCS: 71046

== ENCOUNTER → 2022-10-31 14:28 | Outpatient (BNVA) | payer MEDICARE, MEDICAID, SELFPAY | PROVIDERS: PCP Family Medicine; Visit Provider Podiatrist Foot & Ankle Surgery | DX: L85.1 Acquired keratosis [keratoderma] palmaris et plantaris (principal) | CPT/HCPCS: 17110 ==

== ENCOUNTER 2022-11-13 06:59 | Inpatient (IN) | payer MEDICARE, MEDICAID, SELFPAY ==
[2022-11-13] VITALS (28 sets, daily range): BP systolic 136–165; BP diastolic 72–129; PULSE 65–110; RESP 14–24; TEMP 36.7–37.1; O2SAT 92–100; BMI 18.5
--- NOTE | 2022-11-13 | CT_ITS ---
NOTE: Report was unsigned for reason: Medical record number was edited. Original Signature date and time was: 11/13/22 @1607 CT CHEST ANGIOGRAPHY WITH REFORMATS HISTORY: chest pain, dyspnea, elevated troponin TECHNIQUE: Contiguous axial images are obtained through the chest during arterial injection of intravenous contrast. Images are reconstructed to evaluate the pulmonary arteries. MIP imaging also reviewed. All CT scans at [facility] use at least one of these dose optimization techniques: automated exposure control; mA and/or kV adjustment per patient size (includes targeted exams where dose is matched to clinical indication); or iterative reconstruction. CONTRAST: Omnipaque 350; 58 mL IV. DLP: 174.92 mGy.cm COMPARISON: None available. Very good opacification of the pulmonary arteries. No filling defects or pulmonary emboli. Normal size pulmonary artery. Mild atherosclerotic plaque and ectasia thoracic aorta. LEFT ventricle is enlarged with mild LEFT ventricular hypertrophy. No RIGHT heart strain. No pericardial or pleural effusion. Marked centrilobular emphysema. Mild bronchial wall thickening beginning in the mid to lower lung matthew with a few areas of reticular thickening and tree-in-bud airspace disease in the lower lung matthew. No dense areas of consolidation. The tree-in-bud airspace disease has progressed since 2020. Mediastinal and hilar prominent lymph nodes. Largest lymph nodes measure up to 13 mm. Paratracheal, subcarinal and perihilar lymph nodes. These may be reactive lymph nodes. Small hiatal hernia. No adrenal mass. Osteopenia and scoliosis. IMPRESSION: 1. No pulmonary embolism. 2. Tree-in-bud airspace disease in the lower lung matthew. Consider acute endobronchial pneumonia or aspiration pneumonia. 3. Mediastinal and hilar adenopathy. Likely reactive. Follow-up chest CT in 3 months to document improvement after treatment. 4. [facility]cl [id number] IMPRESSION: 1. No pulmonary embolism. 2. Tree-in-bud airspace disease in the lower lung matthew. Consider acute endob ronchial pneumonia or aspiration pneumonia. 3. Mediastinal and hilar adenopathy. Likely reactive. Follow-up chest CT in 3 months to document improvement after treatment. 4. Atherosclerosis aorta.
--- NOTE | 2022-11-13 07:23 | ECG_ITS ---
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 Measurements Intervals [place] Rate: 92 P: 65 MT: 142 QRS: 31 QRSD: 65 T: 95 QT: 321 QTc: 397 Interpretive Statements SINUS RHYTHM POSSIBLE LEFT ATRIAL ENLARGEMENT [-0.1mV P-WAVE IN V1/V2] NONSPECIFIC ST & T-WAVE ABNORMALITY No previous ECG available for comparison Electronically Signed On 11-13-2022 10:34:13 MUD MIXER OPERATOR by Bonifacio Lala M.D. [id number]
--- NOTE | 2022-11-13 07:30 | XRR_ITS ---
PROCEDURE INFORMATION: Exam: XR Chest Exam date and time: 11/13/2022 7:37 AM Age: 67 years old Clinical indication: Angina pectoris; Patient HX: Covid a few months back but states that she still is not getting any better. Cough, SOB, chest pain and feels weak TECHNIQUE: Imaging protocol: Radiologic exam of the chest. Views: 1 view. COMPARISON: No relevant prior studies available. FINDINGS: Lungs: There is increased bilateral interstitial markings and hazy airspace opacities in the lower lungs, which can be seen with pulmonary congestion or pneumonia. The lungs are somewhat hyperinflated, suggesting background COPD. Pleural spaces: Unremarkable. No pleural effusion. No pneumothorax. Heart/Mediastinum: Unremarkable. No cardiomegaly. Bones/joints: Unremarkable. XR/XR chest 1V portable [id number] IMPRESSION: Nonspecific imaging findings, which can be seen with pulmonary congestion or pneumonia. Clinical correlation is recommended. COPD background suspected.
[2022-11-13 07:43] LABS: Basophils # 0.1 10^3/uL (0.0-0.1); Basophils % 0.4 %; Eosinophils # 0.2 10^3/uL (0.0-0.8); Eosinophils % 1.5 %; Hematocrit 46.9 % (37.0-47.0); Hemoglobin 15.3 g/dL (11.5-15.3); Lymphocytes # 1.2 10^3/uL (0.8-4.8); Lymphocytes % 9.7 %; Mean Corpuscular HGB Conc 32.6 g/dL (30.0-36.0); Mean Corpuscular Hemoglobin 29.9 pg (28.0-34.0); Mean Corpuscular Volume 91.8 fl (81-99); Mean Platelet Volume 11.7 fL (7.4-10.4); Monocytes # 1.2 10^3/uL (0.2-0.9); Monocytes % 9.6 %; Neutrophils # 9.81 10^3/uL (1.8-7.7); Neutrophils % 78.3 %; Nucleated Red Blood Cells % 0 %; Platelet Count 222 10^3/cmm (130-400); Red Blood Count 5.11 10^6/uL (4.1-5.3); Red Cell Distribution Width 13.2 % (12.1-15.1); White Blood Count 12.5 10^3/uL (4.0-10.0)
[2022-11-13 08:49] LABS: Alanine Aminotransferase 21 U/L (0-33); Albumin Level 3.5 g/dL (3.5-5.2); Alkaline Phosphatase 76 U/L (35-105); Anion Gap 18.5 (5-19); Aspartate Amino Transferase 21 U/L (0-32); Blood Urea Nitrogen 42 mg/dL (8-23); Calcium 9.4 mg/dL (8.5-10.5); Carbon Dioxide 23 mmol/L (22-29); Chloride 95 mmol/L (98-107); Globulin 4.1 g/dL (1.3-4.6); Glomerular Filtration Rate 45.1 mL/min (90-130); Glucose 105 mg/dL (65-115); Osmolality Calculated 285 mOsm/kg (285-295); Potassium 4.5 mmol/L (3.5-5.1); Sodium 132 mmol/L (136-145); Total Bilirubin 0.3 mg/dL (0.15-1.2); Total Protein 7.6 g/dL (6.6-8.7)
[2022-11-13 08:55] LABS: Troponin(5th) Baseline 470 ng/L (0-10)
--- NOTE | 2022-11-13 09:25 | W.ED.CHESTPA ---
HPI - Chest Pain General: Chief Complaint: Chest Pain Stated Complaint: CP, SOB Time Seen by Provider: 11/13/22 07:22 Source: patient Mode of arrival: EMS History of Present Illness: This 67-year-old female presents to the ER for evaluation of cough and chest pain that occurred earlier this morning. Patient had COVID-19 virus infection shortly before and since then, has had a lingering chronic cough. This morning, she had a spell of cough following which she developed chest pain. By the time EMS arrived at her residence, chest pain had resolved. Patient has remained pain-free since arriving the ER. She has no fever, nausea or vomiting. Patient is clinically stable with normal oxygen saturation on room air. Review of Systems Const: Denies: chills, body aches or change in appetite Eyes: Denies: change in vision or eye discharge ENMT: Denies: throat pain, dental pain or nasal discharge Card: Reports: chest pain; Denies: lightheadedness Resp: Reports: productive cough : Denies: dysuria Musc: Denies: neck pain or back pain Neuro: Denies: headache(s) or weakness in extremities Psych: Denies: depression Kodak/Lymph: Denies: easy bruising All/Imm: Denies: urticaria, tongue swelling or facial swelling PFSH ED PFSH: Medical History Chronic pain Cystitis cystica Gout Hypertension Hypothyroidism Recurrent UTI Scleroderma Surgical History H/O bladder repair surgery Lift H/O neck surgery cyst excised H/O: hysterectomy History of gastric surgery Status post laparoscopic cholecystectomy (10/04/20) Family History Family/Other Diabetes Cancer Stroke CAD (coronary artery disease) Hypertension Denies family history of Anesthesia complication Bleeding disorder Social History Smoking and tobacco status: current every day smoker Alcohol intake: never Lives independently: Yes Household members: family Marital status: Current occupational status: retired and disabled History of recent travel: No Physical Exam Const: COMMON NORMALS: no acute distress, patient oriented x3, no limitations and alert HENMT: COMMON NORMALS: normocephalic HEAD & SCALP: normocephalic Eye: COMMON NORMALS: EOMs intact bilaterally Neck/C-Spine: COMMON NORMALS: full ROM and supple Chest: COMMONS NORMALS: normal inspection of the chest Resp: COMMON NORMALS: normal respiratory effort, No retractions, No use of accessory muscles and clear to auscultation bilaterally AUSCULTATION: clear to auscultation bilaterally Cardio: COMMON NORMALS: regular rate, regular rhythm and No murmurs present (Cardio) RATE: regular rate RHYTHM: regular rhythm GI: COMMON NORMALS: Normal to inspection, nondistended, normoactive bowel sounds present and non-tender : COMMON NORMALS: Yes no CVA tenderness BLADDER/KIDNEY EXAM: Yes no CVA tenderness Back/Pelvis: COMMON NORMALS: no CVA tenderness and no thoracic nor lumbar tenderness Extremity: GENERAL: Yes normal exam except as noted Neuro: COMMON NORMALS: patient oriented x3 and no focal motor deficits SENSORIUM/ORIENTATION: Yes alert Psych: COMMON NORMALS: mental status grossly normal and cooperative Course Reevaluation(s): Reevaluation #1: Case discussed with Dr. Lala, drip box tender. He recommends giving aspirin and Plavix and starting patient on heparin drip. He recommends admission to the hospitalist service and consults to general cardiology. Vital Signs: Vital signs: Vital Signs Temperature 98.8 F 11/13/22 07:00 Pulse Rate 94 11/13/22 11:55 Respiratory Rate 18 11/13/22 11:55 Blood Pressure 136/94 11/13/22 11:55 Pulse Oximetry 96 11/13/22 11:55 Oxygen Delivery Me thod 11/13/22 11:55 MDM - Chest Pain Medical Decision Making Medical decision making: Patient presented with a brief episode of chest pain that followed vomiting she had at home. At the time of ER arrival and throughout her stay in the ER, she was pain-free. However baseline troponin is 470. EKG reveals no acute ischemic changes. Case discussed with Dr. Lala who recommended that she be admitted under the hospitalist and started on heparin infusion after receiving aspirin and Plavix. Patient was accepted by hospitalist for admission. Lab Data 11/13/22 07:05 11/13/22 08:16 Radiology Impressions Chest X-Ray 11/13/22 07:30 IMPRESSION: Nonspecific imaging findings, which can be seen with pulmonary congestion or pneumonia. Clinical correlation is recommended. COPD background suspected. Laboratory Results WBC 12.5 10^3/uL (4.0-10.0) H 11/13/22 07:05 RBC 5.11 10^6/uL (4.1-5.3) 11/13/22 07:05 Hgb 15.3 g/dL (11.5-15.3) 11/13/22 07:05 Hct 46.9 % (37.0-47.0) 11/13/22 07:05 MCV 91.8 fl (81-99) 11/13/22 07:05 MCH 29.9 pg (28.0-34.0) 11/13/22 07:05 MCHC 32.6 g/dL (30.0-36.0) 11/13/22 07:05 RDW 13.2 % (12.1-15.1) 11/13/22 07:05 Plt Count 222 10^3/cmm (130-400) 11/13/22 07:05 MPV 11.7 fL (7.4-10.4) H 11/13/22 07:05 Neut % (Auto) 78.3 % 11/13/22 07:05 Lymph % (Auto) 9.7 % 11/13/22 07:05 Daniels % (Auto) 9.6 % 11/13/22 07:05 Eos % (Auto) 1.5 % 11/13/22 07:05 Baso % (Auto) 0.4 % 11/13/22 07:05 Neut # (Auto) 9.81 10^3/uL (1.8-7.7) H 11/13/22 07:05 Lymph # (Auto) 1.2 10^3/uL (0.8-4.8) 11/13/22 07:05 Daniels # (Auto) 1.2 10^3/uL (0.2-0.9) H 11/13/22 07:05 Eos # (Auto) 0.2 10^3/uL (0.0-0.8) 11/13/22 07:05 Baso # (Auto) 0.1 10^3/uL (0.0-0.1) 11/13/22 07:05 Nucleated RBC % (auto) 0 % 11/13/22 07:05 Nucleated RBCs # 0.0 /100WBC 11/13/22 07:05 Sodium 132 mmol/L (136-145) L 11/13/22 08:16 Potassium 4.5 mmol/L (3.5-5.1) 11/13/22 08:16 Chloride 95 mmol/L (98-107) L 11/13/22 08:16 Carbon Dioxide 23 mmol/L (22-29) 11/13/22 08:16 Anion Gap 18.5 (5-19) 11/13/22 08:16 BUN 42 mg/dL (8-23) H 11/13/22 08:16 Creatinine 1.2 mg/dL (0.5-0.9) H 11/13/22 08:16 GFR Calculation 45.1 mL/min (90-130) L 11/13/22 08:16 Glucose 105 mg/dL (65-115) 11/13/22 08:16 Calculated Osmolality 285 mOsm/kg (285-295) 11/13/22 08:16 Calcium 9.4 mg/dL (8.5-10.5) 11/13/22 08:16 Total Bilirubin 0.3 mg/dL (0.15-1.2) 11/13/22 08:16 AST 21 U/L (0-32) 11/13/22 08:16 ALT 21 U/L (0-33) 11/13/22 08:16 Alkaline Phosphatase 76 U/L (35-105) 11/13/22 08:16 Troponin T Baseline 470 ng/L (0-10) H* 11/13/22 08:16 Troponin T 120 Minute 380.9 ng/L (0-10) H 11/13/22 10:15 Delta Troponin T -89.1 ABS# (0-10) L 11/13/22 10:15 NT-Pro-B Natriuret Pep 234 pg/mL (0-125) H 11/13/22 08:16 Total Protein 7.6 g/dL (6.6-8.7) 11/13/22 08:16 Albumin 3.5 g/dL (3.5-5.2) 11/13/22 08:16 Globulin 4.1 g/dL (1.3-4.6) 11/13/22 08:16 Discharge Plan Discharge Patient Disposition: Admitted As Inpatient Admit Provider: Heriberto Galarza Clinical Impression: Acute non-ST elevation myocardial infarction (NSTEMI) Condition: Stable Coding Level of Care Code ED Printed Circuit Board Pcb Designer for Celyg Fwd Exam Comprehensive
--- NOTE | 2022-11-13 09:31 | ECG_ITS ---
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 Measurements Intervals [place] Rate: 107 P: 74 NC: 135 QRS: 60 QRSD: 73 T: 98 QT: 323 QTc: 432 Interpretive Statements SINUS TACHYCARDIA POSSIBLE LEFT ATRIAL ENLARGEMENT [-0.1mV P-WAVE IN V1/V2] NONSPECIFIC ST & T-WAVE ABNORMALITY Compared to ECG 11/13/2022 07:23:57 Sinus rhythm no longer present T-wave abnormality still present Electronically Signed On 11-13-2022 10:34:35 RN CVICU by Bonifacio Lala M.D. [email or web address]-[id number]
--- NOTE | 2022-11-13 10:45 | CT_ITS ---
WS: [id number] CT CHEST ANGIOGRAPHY WITH REFORMATS HISTORY: chest pain, dyspnea, elevated troponin TECHNIQUE: Contiguous axial images are obtained through the chest during arterial injection of intrav enous contrast. Images are reconstructed to evaluate the pulmonary arteries. MIP imaging also reviewe d. All CT scans at [facility] use at least one of these dose optimization techniques: automat ed exposure control; mA and/or kV adjustment per patient size (includes targeted exams where dose is matched to clinical indication); or iterative reconstruction. CONTRAST: Omnipaque 350; 58 mL IV. DLP: 174.92 mGy.cm COMPARISON: None available. Very good opacification of the pulmonary arteries. No filling defects or pulmonary emboli. Normal siz e pulmonary artery. Mild atherosclerotic plaque and ectasia thoracic aorta. LEFT ventricle is enlarge d with mild LEFT ventricular hypertrophy. No RIGHT heart strain. No pericardial or pleural effusion. Marked centrilobular emphysema. Mild bronchial wall thickening beginning in the mid to lower lung fie lds with a few areas of reticular thickening and tree-in-bud airspace disease in the lower lung field s. No dense areas of consolidation. The tree-in-bud airspace disease has progressed since 2020. Mediastinal and hilar prominent lymph nodes. Largest lymph nodes measure up to 13 mm. Paratracheal, s ubcarinal and perihilar lymph nodes. These may be reactive lymph nodes. Small hiatal hernia. No adren al mass. Osteopenia and scoliosis.
[2022-11-13 11:01] LABS: Troponin 5 2HR 380.9 ng/L (0-10)
--- NOTE | 2022-11-13 11:15 | PC.NURSE ---
INFORMED DR. VERNON OF PT TROP OF 380.9 HE VERBALIZED UNDERSTANDING NO FURTHER ORDERS.
[2022-11-13 11:24] LABS: NT Pro B Type Natriuretic Pept 234 pg/mL (0-125)
[2022-11-13] MEDS: clopidogrel 300 mg Tablet 600 MG PO (12:01)
[2022-11-13] MEDS: enoxaparin 60 mg/0.6 mL Syringe 50 MG SUBCUT (12:02)
[2022-11-13] MEDS: sodium chloride 0.9% 1,000 ML 75 ML IV (12:02)
--- NOTE | 2022-11-13 12:31 | PM.HP ---
Providers/Chief Complaint Admitting Physician: Heriberto Galarza MD Chief Complaint: CP, SOB History of Present Illness Jeannette Perry is a 67 year old female presenting from home with chest discomfort. She states she had at least 2 separate episodes of chest discomfort, 1 yesterday and 1 today. She states they were sharp and fairly brief in nature. She did have some discomfort into her neck and back as well. She has no discomfort currently. She reports has been coughing, some thick creamy sputum for several weeks to several months. She thinks this started after she had COVID around Thanksgiving. She denies any fevers. She does feel short of breath at times. She has not had any vomiting, nausea. She denies any prior history of heart disease. She reports no blood in her stool, black or tarry stools. During her emergency department visit troponin was found to be elevated. Cardiology was consulted, and aspirin, Plavix, and Lovenox were initiated. During my visit she coughed up some cloudy, creamy sputum several times. Review of Systems General: Reports: 10 or more systems reviewed and unremarkable except in HPI and below Const: Reports: malaise; Denies: fever(s) or chills Eyes: Denies: change in vision ENMT: Denies: throat pain Card: Reports: chest pain; Denies: swelling of feet/ankles Resp: Reports: dyspnea GI: Denies: abdominal pain, nausea, vomiting, hematochezia or melena : Denies: flank pain Musc: Denies: neck pain Skin/Breast: Denies: rash Neuro: Denies: headache(s) Psych: Denies: anxiety or depression Endo: Denies: polyuria Kodak/Lymph: Denies: easy bruising Medications/Allergies Home Medications Medication Instructions Recorded Confirmed Last Taken Type allopurinol 100 mg tablet 100 mg PO DAILY 01/14/20 10/31/22 10/03/20 History levothyroxine 125 mcg capsule 125 mcg PO DAILY 01/14/20 10/31/22 10/04/20 06:30 History propranolol 20 mg tablet 20 mg PO BID 01/14/20 10/31/22 10/04/20 06:30 History ondansetron HCl 4 mg tablet 4 mg PO QID PRN nausea 10/01/20 10/31/22 10/01/20 History docusate sodium 100 mg capsule 100 mg PO BID #30 caps 10/04/20 10/31/22 Unknown Rx (Colace) ondansetron HCl 4 mg tablet 4 mg PO Q6H PRN nausea and 10/04/20 10/31/22 Unknown Rx (Zofran) vomiting #20 tabs lisinopril 2.5 mg tablet 2.5 mg PO BID #60 tabs 06/29/22 10/31/22 Unknown Rx omeprazole 20 mg capsule,delayed 20 mg PO BID #60 caps 06/29/22 10/31/22 Unknown Rx release prednisone 1 mg tablet 2 mg PO BID #120 tabs 06/29/22 10/31/22 Unknown Rx clonazepam 0.5 mg tablet 0.5 mg PO BID #60 tabs 08/24/22 10/31/22 Unknown Rx ciprofloxacin HCl 500 mg tablet 500 mg PO BID #20 tabs 10/03/22 10/31/22 Unknown Rx hydromorphone 4 mg tablet 4 mg PO Q4H PRN Pain 1 month #180 10/23/22 10/31/22 Unknown Rx (Dilaudid) tabs allopurinol 100 mg tablet 100 mg PO DAILY 11/13/22 11/13/22 11/12/22 History hydromorphone 4 mg tablet 4 mg PO Q4H PRN Pain 11/13/22 11/13/22 11/12/22 History levothyroxine 125 mcg tablet 125 mcg PO DAILY 11/13/22 11/13/22 11/12/22 History lisinopril 2.5 mg tablet 2.5 mg PO BID 11/13/22 11/13/22 11/12/22 History ondansetron HCl 4 mg tablet 4 mg PO Q4H PRN Nausea 11/13/22 11/13/22 11/12/22 History prednisone 2.5 mg tablet 2.5 mg PO DAILY 11/13/22 11/13/22 11/12/22 History prednisone 5 mg tablet 2.5 mg PO DAILY 11/13/22 11/13/22 Unknown History propranolol 20 mg tablet 20 mg PO BID 11/13/22 11/13/22 11/12/22 History Allergies Allergy/AdvReac Type Severity Reaction Status Date / Time methadone Allergy NA Verified 11/13/22 12:07 morphine Allergy NA Verified 11/13/22 12:07 oxycodone Allergy NA Verified 11/13/22 12:07 Penicillins Allergy NA Verified 11/13/22 12:07 oxybutynin AdvReac Intermediate nausea and Verified 11/13/22 12:07 dizziness nitro cream AdvReac Intermediate headache Uncoded 11/13/22 12:07 PFSH Acute PFSH: Medical History Chronic pain Cystitis cystica Gout Hypertension Hypothyroidism Recurrent UTI Scleroderma Surgical History H/O bladder repair surgery Lift H/O neck surgery cyst excised H/O: hysterectomy History of gastric surgery Status post laparoscopic cholecystectomy (10/04/20) Family History Family/Other Diabetes Cancer Stroke CAD (coronary artery disease) Hypertension Denies family history of Anesthesia complication Bleeding disorder Social History Smoking and tobacco status: current every day smoker Alcohol intake: never Lives independently: Yes Household members: family Marital status: Current occupational status: retired and disabled History of recent travel: No Vitals/I&O/Wt Last Vital Signs Temp 98.8 F 11/13/22 07:00 Pulse 94 11/13/22 11:55 Resp 18 11/13/22 11:55 BP 136/94 11/13/22 11:55 Pulse Ox 96 11/13/22 11:55 O2 Del Method 11/13/22 11:55 Weight last 48 hrs Weight 48.988 kg Physical Exam Narrative: General exam is a white female, with some joint deformities most notably in her hands, in no apparent distress and denying any chest discomfort HEENT: Atraumatic and normocephalic. Pupils equally round. Oropharynx clear. Neck is supple no lymphadenopathy thyromegaly Cardiovascular regular rate and rhythm, heart sounds distant. No obvious murmur Lungs diminished breath sounds bilaterally with a few coarse breath sounds at the bases, most notably the left Abdomen is soft, positive bowel sounds. No obvious organomegaly exam is deferred Extremities no cyanosis clubbing or edema, deformities noted, multiple calluses on feet but no evidence of infection Skin see findings above Neuro no focal deficits Data 11/13/22 07:05 11/13/22 08:16 Other Labs: LFTs are normal Calcium is normal Initial troponin 470 with repeat of 380 BNP 234 Albumin 3.5 Chest x-ray which I reviewed demonstrates some bibasilar infiltrates. Blood cultures have been obtained EKG demonstrates normal sinus rhythm, normal axis, flipped T waves laterally which is old. Borderline tachycardia. Biphasic P wave indicating left atrial enlargement. A&P Assessment and plan (1) Acute non-ST elevation myocardial infarction (NSTEMI): Patient presents with history of chest pain, atypical, but markedly elevated troponin. Delta is downward. Agree with Plavix, aspirin, Lovenox therapeutic which is already initiated Check echocardiogram Cardiology consultation Secondary to atypical nature of the discomfort, sharp, concomitant respiratory symptoms, borderline tachycardia, reduced mobility secondary to scleroderma, on chronic steroids, will evaluate for possible PE with CTA Lipid profile in the a.m. Change propranolol to metoprolol (2) Pneumonia: Appears to have community-acquired pneumonia. DuoNeb every 6 hours Blood cultures have been drawn Arrange for sputum cultures IV antibiotics consisting of Rocephin and azithromycin CTA may delineate this further (3) Scleroderma: Continue patient's steroid. We will not escalate dose currently. (4) Acute kidney injury: Hydration cautiously considering CTA being obtained. Currently acute kidney injury is mild Plan History of hypothyroidism, check TSH Attestations Medical Necessity Statement*: Will need greater than 2 midnight stay for evaluation and treatment of pneumonia, as well as chest discomfort and non-ST elevation myocardial infarction Coding Level of Care Code Acute Code for [facility] Diagnoses Acute non-ST elevation myocardial infarction (NSTEMI) I21.4 Pneumonia J18.9 Scleroderma M34.9 Acute kidney injury N17.9
--- NOTE | 2022-11-13 12:59 | PC.NURSE ---
report called to Jon in [facility]
[2022-11-13] MEDS: cefTRIAXone 1,000 MG in sodium chloride 0.9% (plus) 50 ML 100 MG IV (13:08)
--- NOTE | 2022-11-13 13:40 | ECG_ITS ---
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 Measurements Intervals [place] Rate: 105 P: 68 MS: 129 QRS: 29 QRSD: 67 T: 100 QT: 317 QTc: 420 Interpretive Statements SINUS TACHYCARDIA LEFT VENTRICULAR HYPERTROPHY AND ST-T CHANGE [VOLTAGE CRITERIA PLUS ST/T ABNORMALITY] Compared to ECG 11/13/2022 09:21:27 Left ventricular hypertrophy now present ST (T wave) deviation now present T-wave abnormality no longer present Electronically Signed On 11-13-2022 15:18:03 RECOVERY MANAGER by Bonifacio Lala M.D. [email or web address]
--- NOTE | 2022-11-13 13:47 | USCV_ITS ---
Jeannette Perry Age: 67 Gender: F : 1955 Exam Date: 11/13/2022 14:27 Ordering Phys: Heriberto Galarza MD Technologist: True Brown [place] [facility] [place]: Chest pain BP: 138 / 88 HR: 100 Rhythm: Sinus Technical Quality: Adequate MEASUREMENTS (Male / Female) Normal Values 2D ECHO LV Diastolic Diameter PLAX 3.9 cm 4.2 - 5.9 / 3.9 - 5.3 cm LV Systolic Diameter PLAX 2.3 cm IVS Diastolic Thickness 1.1 cm 0.6 - 1.0 / 0.6 - 0.9 cm IVS Systolic Thickness 1.1 cm LVPW Diastolic Thickness 1.5 cm 0.6 - 1.0 / 0.6 - 0.9 cm LVPW Systolic Thickness 1.8 cm LVOT Diameter 2.0 cm LV Ejection Fraction 2D Teich 72.3 % LV Ejection Fraction MOD 2C 73.4 % LV Ejection Fraction 2C AL 74.8 % LA Diameter 2.5 cm LA Width 2.5 cm LA Height 3.5 cm RA Width 2.0 cm RA Height 3.7 cm Aorta at Sinotubular Diameter 1.8 cm IVC Diameter 1.3 cm M-MODE Aortic Annulus Diameter 2.3 cm LA Ao Ratio MM 0.9 DOPPLER AV Peak Velocity 138.0 cm/s LVOT Peak Velocity 91.0 cm/s AV Area Cont Eq vti 2.2 cm squared AV Area Cont Eq pk 2.1 cm squared MV Peak Velocity 99.0 cm/s MV Area PHT 5.0 cm squared Mitral E to A Ratio 0.5 MV E' Velocity 27.0 cm/s Mitral E to MV E' Ratio 6.8 Mitral E to LV E' Lateral Ratio 6.6 Mitral E to LV E' Septal Ratio 7.0 TR Peak Velocity 271.8 cm/s TR Peak Gradient 29.5 mmHg TR Mean Velocity 206.0 cm/s TR Mean Gradient 18.7 mmHg TR Velocity Time Integral 57.6 cm Right Atrial Pressure 3.0 mmHg Pulmonary Artery Systolic Pressu 32.5 mmHg PV Peak Velocity 105.0 cm/s RV Acceleration Time 0.1 s RV Ejection Time 0.2 s RV AcT/ET 0.4 FINDINGS Left Ventricle Normal left ventricular size, systolic function and wall thickness, with no regional wall motion abnormalities. Left ventricular ejection fraction is estimated at 70 %. Normal diastolic function. Right Ventricle Normal right ventricular size and systolic function. Right ventricular systolic pressure 32.5 mmHg. Right Atrium Normal right atrial size. Left Atrium Normal left atrial size. Mitral Valve Structurally normal mitral valve. No mitral valve stenosis. No mitral valve regurgitation. Aortic Valve Structurally normal trileaflet aortic valve. No aortic valve stenosis. No aortic valve regurgitation. Tricuspid Valve Structurally normal tricuspid valve. No tricuspid valve stenosis. Trace tricuspid valve regurgitation. Pulmonic Valve Structurally normal pulmonic valve. No pulmonary valve stenosis. No significant pulmonary valve regurgitation. Pericardium No pericardial effusion. Prominent epicardial fat. Aorta Normal size aortic root and proximal ascending aorta. IVC Normal IVC dimension with >50% respiratory change of the inferior vena cava. CONCLUSIONS 1. Normal left ventricular size, systolic function and wall thickness, with no regional wall motion abnormalities. Left ventricular ejection fraction is estimated at 70 %. Normal diastolic function. 2. No significant valvular abnormality. 3. No significant change when compared to study dated 01/21/2019. Jody Claros MD (Electronically Signed) Final Date: 13 November 2022 16:44 S
[2022-11-13] MEDS: azithromycin 500 MG in sodium chloride 0.9% 250 ML 250 MG IV (13:52)
[2022-11-13 14:25] LABS: Thyroid Stimulating Hormone 0.11 uIU/mL (0.27-4.20)
[2022-11-13] MEDS: albuterol 2.5 mg/3 mL Neb INHALATION ×2 (14:56→19:50)
[2022-11-13] MEDS: ipratropium 0.5 mg/2.5 mL Neb INHALATION ×2 (14:56→19:50)
[2022-11-13 14:57] LABS: Troponin 5 6HR 327.7 ng/L (0-10)
[2022-11-13] MEDS: iohexol 350 mg/mL 500 mL Btl (per mL) IV (15:30)
--- NOTE | 2022-11-13 17:21 | PM.CONSULT ---
Providers/Reason For Consult Consulting Physician/Specialty*: Dr. Claros, Cardiology Reason for Consult*: Chest pain, elevated troponin Attending Physician: Heriberto Galarza MD History of Present Illness History of Present Illness Jeannette Perry is a 67 year old female with PMHx of scleroderma, HTN, joint deformity d/t scleroderma, COVID-19 infection in August 2022 and persistent cough on and off since then. She complains of productive cough persistent since 08/2022. She also c/o fever and chills. She had chest pain sharp in nature this morning that lasted for few minutes and then another episode sometime later. She asked her daughter to come to ER for further evaluation. EKG showed sinus tachycardia. ST-T wave inversion in I and aVL. Unchanged on subsequent EKG's. She was also found to have PNA. Review of Systems General: Reports: 10 or more systems reviewed and unremarkable except in HPI and below Const: Reports: malaise; Denies: fever(s) or chills Eyes: Denies: change in vision ENMT: Denies: throat pain Card: Reports: chest pain; Denies: swelling of feet/ankles Resp: Reports: dyspnea GI: Denies: abdominal pain, nausea, vomiting, hematochezia or melena : Denies: flank pain Musc: Denies: neck pain Skin/Breast: Denies: rash Neuro: Denies: headache(s) Psych: Denies: anxiety or depression Endo: Denies: polyuria Kodak/Lymph: Denies: easy bruising Medications/Allergies Home Medications Medication Instructions Recorded Confirmed Last Taken Type allopurinol 100 mg tablet 100 mg PO DAILY 11/13/22 11/13/22 11/12/22 History hydromorphone 4 mg tablet 4 mg PO Q4H PRN Pain 11/13/22 11/13/22 11/12/22 History levothyroxine 125 mcg tablet 125 mcg PO DAILY 11/13/22 11/13/22 11/12/22 History lisinopril 2.5 mg tablet 2.5 mg PO BID 11/13/22 11/13/22 11/12/22 History ondansetron HCl 4 mg tablet 4 mg PO Q4H PRN Nausea 11/13/22 11/13/22 11/12/22 History prednisone 2.5 mg tablet 2.5 mg PO DAILY 11/13/22 11/13/22 11/12/22 History propranolol 20 mg tablet 20 mg PO BID 11/13/22 11/13/22 11/12/22 History Allergies Allergy/AdvReac Type Severity Reaction Status Date / Time methadone Allergy NA Verified 11/13/22 12:07 morphine Allergy NA Verified 11/13/22 12:07 oxycodone Allergy NA Verified 11/13/22 12:07 Penicillins Allergy NA Verified 11/13/22 12:07 oxybutynin AdvReac Intermediate nausea and Verified 11/13/22 12:07 dizziness nitro cream AdvReac Intermediate headache Uncoded 11/13/22 12:07 Current Medications Generic Name Dose Route Start Last Admin Trade Name Freq PRN Reason Stop Dose Admin Albuterol Sulfate 2.5 mg 11/13/22 14:00 11/13/22 14:56 Albuterol 2.5 Mg/3 Ml Neb INHALATION 2.5 mg Q6H.RESP OK Administration Hydromorphone HCl 4 mg 11/13/22 15:09 11/13/22 16:03 Hydromorphone 4 Mg Tablet PO 4 mg Q4H PRN Administration Pain Sodium Chloride 1,000 mls @ 75 mls/hr 11/13/22 11:00 11/13/22 12:02 Sodium Chloride 0.9% IV 75 mls/hr .[id number] OK Administration Ceftriaxone Sodium 1,000 mg/ 50 mls @ 100 mls/hr 11/13/22 12:30 11/13/22 15:20 Sodium Chloride IV Infused Q24H OK Infusion Protocol Azithromycin 500 mg/ Sodium 250 mls @ 250 mls/hr 11/13/22 12:30 11/13/22 15:20 Chloride IV Infused Q24H OK Infusion Protocol Ipratropium [place] 0.5 mg 11/13/22 14:00 11/13/22 14:56 Ipratropium 0.5 Mg/2.5 Ml Neb INHALATION 0.5 mg Q6H.RESP OK Administration PFSH Acute PFSH: Medical History (Updated 11/13/22 @ 18:45 by Jody Claros MD) Chronic pain Cystitis cystica Gout Hypertension Hypothyroidism Recurrent UTI Scleroderma Surgical History H/O bladder repair surgery Lift H/O neck surgery cyst excised H/O: hysterectomy History of gastric surgery Status post laparoscopic cholecystectomy (10/04/20) Family History Family/Other Diabetes Cancer Stroke CAD (coronary artery disease) Hypertension Denies family history of Anesthesia complication Bleeding disorder Social History Smoking and tobacco status: current every day smoker Alcohol intake: never Lives independently: Yes Household members: family Marital status: Current occupational status: retired and disabled History of recent travel: No Vitals/I&O/Wt Last Vital Signs Temp 98.8 F 11/13/22 07:00 Pulse 107 H 11/13/22 15:59 Resp 16 11/13/22 16:03 BP 138/79 11/13/22 15:58 Pulse Ox 93 11/13/22 16:03 O2 Del Method 11/13/22 15:58 11/13/22 11/13/22 11/13/22 06:59 14:59 22:59 Intake Total 300 / 300 Balance 300 / 300 Weight last 48 hrs Weight 108 lb Physical Exam Narrative: Gen: HEENT/Neck: RS: CVS: PA: 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 1.? No pulmonary embolism. 2.? Tree-in-bud airspace disease in the lower lung matthew. Consider acute endobronchial pneumonia or aspiration pneumonia. 3.? Mediastinal and hilar adenopathy. Likely reactive. Follow-up chest CT in 3 months to document improvement after treatment. 4.? Atherosclerosis aorta. CXR (11/13/22) IMPRESSION: Nonspecific imaging findings, which can be seen with pulmonary congestion or pneumonia. Clinical correlation is recommended. COPD background suspected. TTE (11/13/22) CONCLUSIONS ?1. Normal left ventricular size, systolic function and wall ?thickness, with no regional wall motion abnormalities. Left ?ventricular ejection fraction is estimated at 70 %. Normal ?diastolic function. ?2. No significant valvular abnormality. ?3. No significant change when compared to study dated ?01/21/2019. A&P Assessment and plan (1) Acute non-ST elevation myocardial infarction (NSTEMI): Type 1 vs type 2 -No new EKG changes, echo with normal LV function. No RWMA -last angiogram 15-20 years ago -Based on renal function, will plan for cath. -continue with medical management (2) Pneumonia: on abx as per primary team (3) Hypertension: (4) Acute kidney injury: (5) Scleroderma: Plan Smoker Patient seen today via Telehealth by agreement and consent of patient. Telehealth technology used during the visit include video and audio. The patient has been advised of the potential risks and limitations of this mode of treatment (including but not limited to the absence of in-person examination) and has agreed to be treated in a remote fashion in spite of them. Any and all of the patient?s/patient?s family?s questions on this issue have been answered. The patient has also been advised to contact this office for worsening conditions or problems, and seek emergency medical treatment and/or call 911 if the patient deems either necessary. Exam was conducted with the help of bedside nurse. Time spent in encounter 30 minutes with >50% time spent face to face. Coding Level of Care Code Acute Code for [facility] [place] [facility]wd Diagnoses Acute non-ST elevation myocardial infarction (NSTEMI) I21.4 Pneumonia J18.9 Hypertension I10 Acute kidney injury N17.9 Scleroderma M34.9
[2022-11-13] MEDS: lisinopril 2.5 mg Tablet PO (18:43)
[2022-11-13] MEDS: metoprolol tartrate 25 mg Tablet PO (20:26)
[2022-11-14] VITALS (62 sets, daily range): BP systolic 111–177; BP diastolic 64–115; PULSE 60–119; RESP 15–33; TEMP -13.1–37.1; O2SAT 90–99
[2022-11-14] MEDS: enoxaparin 60 mg/0.6 mL Syringe 50 MG SUBCUT ×2 (00:01→23:38)
[2022-11-14] MEDS: sodium chloride 0.9% 1,000 ML 75 ML IV (02:35)
[2022-11-14] MEDS: albuterol 2.5 mg/3 mL Neb INHALATION ×3 (02:36→19:57)
[2022-11-14] MEDS: ipratropium 0.5 mg/2.5 mL Neb INHALATION ×3 (02:36→19:57)
[2022-11-14 03:35] LABS: Basophils % 0.4 %; Eosinophils # 0.1 10^3/uL (0.0-0.8); Eosinophils % 1.9 %; Hematocrit 37.2 % (37.0-47.0); Hemoglobin 11.9 g/dL (11.5-15.3); Lymphocytes # 1.5 10^3/uL (0.8-4.8); Lymphocytes % 21.6 %; Mean Corpuscular Hemoglobin 29.3 pg (28.0-34.0); Mean Corpuscular Volume 91.6 fl (81-99); Mean Platelet Volume 10.3 fL (7.4-10.4); Monocytes # 0.7 10^3/uL (0.2-0.9); Monocytes % 10.5 %; Neutrophils # 4.53 10^3/uL (1.8-7.7); Neutrophils % 64.9 %; Nucleated Red Blood Cells % 0 %; Platelet Count 179 10^3/cmm (130-400); Red Blood Count 4.06 10^6/uL (4.1-5.3); Red Cell Distribution Width 13.2 % (12.1-15.1)
[2022-11-14 03:47] LABS: Anion Gap 15.4 (5-19); Blood Urea Nitrogen 30 mg/dL (8-23); Calcium 8.3 mg/dL (8.5-10.5); Chloride 101 mmol/L (98-107); Glomerular Filtration Rate 55.6 mL/min (90-130); Magnesium 1.9 mg/dL (1.7-2.3); Potassium 4.4 mmol/L (3.5-5.1); Sodium 133 mmol/L (136-145); Total Bilirubin 0.2 mg/dL (0.15-1.2); Total Protein 6.2 g/dL (6.6-8.7)
[2022-11-14 04:10] LABS: Chol HDL Ratio 4.21 mg/dL (0.0-4.40); Cholesterol 118 mg/dL (0-200); HDL Cholesterol 28 mg/dL (60-100); LDL Cholesterol Calculated 69 mg/dL (50-129); LDL HDL Ratio 2.46 RATIO (0.00-3.22); Triglycerides 107 mg/dL (0-150)
[2022-11-14 04:11] LABS: Alanine Aminotransferase 17 U/L (0-33); Alkaline Phosphatase 62 U/L (35-105); Aspartate Amino Transferase 15 U/L (0-32); Glucose 86 mg/dL (65-115)
[2022-11-14 04:15] LABS: Osmolality Calculated 281 mOsm/kg (285-295)
[2022-11-14 04:19] LABS: Albumin Level 2.8 g/dL (3.5-5.2); Globulin 3.4 g/dL (1.3-4.6)
[2022-11-14 04:20] LABS: Carbon Dioxide 21 mmol/L (22-29)
[2022-11-14 07:48] LABS: Free T4 Free Thyroxine 1.68 ng/dL (0.82-1.77); T3 Free 1.7 PG/ML (2.0-4.4)
[2022-11-14] MEDS: predniSONE 5 mg Tablet 2.5 MG PO (08:13)
[2022-11-14] MEDS: metoprolol tartrate 25 mg Tablet PO ×2 (08:13→20:59)
[2022-11-14] MEDS: aspirin 81 mg EC Tablet PO (08:13)
[2022-11-14] MEDS: levothyroxine 125 mcg Tablet PO (08:13)
[2022-11-14] MEDS: clopidogrel 75 mg Tablet PO (08:14)
[2022-11-14] MEDS: lisinopril 2.5 mg Tablet PO (08:14)
--- NOTE | 2022-11-14 08:22 | XACV_ITS ---
Exam Room: [facility] Ht: 163 cm Wt: 49 kg BSA: 1.48 m2 Gender: Female : 1955 Exam Priority: Routine Procedure(s): Procedure Description: Diagnostic procedure Procedure Description: Left Heart Catheterization Procedure Description: Coronary Angiography Diagnostic Cath Status: Elective Diagnostic Findings * INDICATION: 67-year-old woman with past medical history of hypertension and scleroderma who presented to the hospital with atypical chest pain symptoms. Her troponin was very high and was over 400 on presentation. She was treated for non-ST elevation CT and plan for left heart cath with possible percutaneous coronary intervention. * Non-obstructive coronary artery disease. * Left main artery: Patent. LAD: Has mild diffuse luminal irregularities. No significant stenosis. It gives rise to medium size diagonal artery that has moderate 50-60 % proximal stenosis. Left circumflex artery: Has diffuse mild luminal irregularities. Distal left circumflex artery has moderate 40 to 50% stenosis. RCA: Has moderate luminal irregularities. Proximal vessel has 30 to 40% stenosis.. * Coronary angiography shows right dominance. Conclusions 1. Non-obstructive coronary artery disease. 2. Moderate stenosis of distal Left circumflex artery and diagonal artery. Recommendations * Aggressive risk factor modification. * Outpatient cardiology follow up in 4 weeks. * Continue aspirin and plavix. Interventional RX Recommendation: medical therapy and/or counseling Diagnostic RX Recommendation: medical therapy and/or counseling Anticoagulation: Heparin Pressures Phase:Rest AO : 208 / 101 ( 143 ) @ 9:44:00 AM 160 / 94 ( 124 ) @ 9:45:00 AM 146 / 81 ( 105 ) @ 9:47:00 AM 177 / 85 ( 123 ) @ 9:49:00 AM 176 / 81 ( 122 ) @ 9:49:00 AM LV : 177 / -12 / 20 @ 9:49:00 AM 177 / -12 / 20 @ 9:49:00 AM Valves Phase:DefaultPhase AV : 0.0 @ 9:57:20 AM AV Mean Gradient: 0.0 @ 9:57:20 AM 0.0 @ 9:57:21 AM Clinical Evaluation EBL: 5mL-10mL Procedural Details Procedure Consent Obtained. Admit Source: In Patient. Pre-Procedure Time Out. Identified patient by full name and date of as verbalized by the patient/guarantor. Does the consent match the physician's order: Yes. Accurate & Complete Informed Consent: Yes. Inpatient/Outpatient History & Physical on Chart: Yes. If H&P is completed, is and addenduem needed: No; If yes, is the addendum complete: N/A. Visualize and Verify Site with Patient/Guarantor: N/A. Relevant Radiology Images available: N/A. Pre-op teaching completed and patient verbalized understanding. The risks, benefits, and alternatives of sedation and/or procedure were discussed by physician. The patient agrees to continue. Procedure started. [facility] Clinical Fraility Score: 4: Vulnerable. Detonator Assembler Indications: Worsening Angina. Chest Pain Symptom Assessment: Typical Angina Symptoms. Correct patient, site and procedure confirmed by cath team. Current diagnosis: NSTEMI. PERRLA. Strong, equal hand clinical operations manager bilaterally. Lungs clear x 5 lobes. IV Site on Arrival: 20 gauge in the left anticubital. IV Fluids: 0.9% NaCl at KVO. 200 mL infused prior to paving and surfacing labourer. Pre Procedural Pulses: right radial was 1+. Pre Procedural Pulses: bilateral dorsalis pedis was 1+. Oxygen started at 2liters/min via nasal canula. right groin was prepped with chloroprep then draped in the usual sterile fashion. right radial was prepped with chloroprep then draped in the usual sterile fashion. Physician notified. Baseline sample Acquired. HR: 73 BPM. Physician arrived. Physician scrubbed in. Immediate Pre-Procedure Time Out. Correct Patient: Yes; Correct Procedure: Yes; Correct Site: Yes; Correct Patient Position: Yes; Correct Supplies: Yes; Dried Flammable Prep: Yes; Blood Products Available: N/A;. Lidocaine 1% infiltrated to the right radial. Arterial access obtained. A 5 kittitian TIG catheter in over wire. Multiple views taken of left coronary artery. Catheter redirected to the RCA. Multiple views taken of right coronary artery. EDP Sample taken: LV 177/-13,20; HR: 84 BPM; SpO2: 99%. Pullback taken: LV 177/-13,20; AO 177/85(123); Mean: 0mmHg, Peak to Peak: 0mmHg, SEP: 17sec/min; HR: 83 BPM; SpO2: 99%. Catheter out. Physician scrubbed out. Physician review of cine films. A TR Band was successful obtaining hemostatsis at the Right Radial artery insertion site. Post Procedure: Pulses reassessed and unchanged. PERRLA. Strong, equal hand clinical operations manager bilaterally. No VTE prophylaxis required. Medication's Wasted: Heparin = 3500 u. Medication's Wasted: Nitro = 49.9 mg. Medication's Wasted: Lidocaine 1% = 2 mL. Medication's Wasted: Other = Versed 1 mg. Medication's Wasted: Other = Fentanyl 75 mcg. Medication's Wasted: Other = Benadryl 25 mg. Total IV fluids: 29 mL. Post-op diagnosis: Moderate CAD Distal Circumflex. Complications: none. Estimated blood loss: 5mL-10mL. Responsiveness - Normal response to verbal stimuli; alert and oriented, PERRLA. Airway - Unaffected, no intervention required; spontaneous ventilation. Circulation: W/N/L, pulses unchanged. Nausea/Vomiting: No. Procedure completed. Patient transferred by bed to CPRU. Vital chart was stopped. Access Site Site: Right Radial artery Sheath Size: 6 Fr Hemostasis Method: TR Band Hemostasis Success: Successful Procedure Medications Start: 9:39 AM Stop: 9:39 AM Medication: Versed Amount: 1 mg Route: I.V. Start: 9:39 AM Stop: 9:39 AM Medication: Fentanyl Amount: 25 mcg Route: I.V. Start: 9:42 AM Stop: 9:42 AM Medication: Nitrogylcerin Amount: 100 mcg Route: I.A. Start: 9:42 AM Stop: 9:42 AM Medication: Heparin Amount: 2500 units Route: I.V. Start: 9:39 AM Stop: 9:39 AM Medication: Benadryl Amount: 25 mg Route: I.V. I, the attending physician, have reviewed and verified all procedure medications. Yes, all medications given per verbal order History/Risk Factors Hypertension: Yes Dyslipidemia: No Peripheral Arterial Disease (PAD): No Myocardial Infarction (CT): No Obesity: No Renal Disease: No Tobacco Use: Current/Recent(w/in 1 year) Prior Interventions PCI: No CABG: No Valve Surgery: No Report Signatures Finalized by Bonifacio Lala MD on 11/15/2022 09:31 AM
--- NOTE | 2022-11-14 08:23 | P.PN_ITS ---
Subjective Subjective: Jeannette reports no chest discomfort overnight. She reports some cough. She is able to lie flat. Not really short of breath. Still on room air. Medications: Reviewed: Yes Vitals/I&O/Wt Last Vital Signs Temp 97.8 F 11/14/22 08:00 Pulse 93 11/14/22 08:00 Resp 21 H 11/14/22 08:00 BP 171/85 11/14/22 08:00 Pulse Ox 96 11/14/22 08:00 O2 Del Method 11/14/22 08:00 FiO2 21 11/13/22 19:55 11/13/22 11/14/22 11/14/22 22:59 06:59 14:59 Intake Total 550 / 550 0 / 0 Output Total 300 / 300 820 / 1120 Balance 250 / 250 -820 / -570 0 / 0 Weight last 48 hrs Weight 48.988 kg Physical Exam Narrative: General exam no distress, occasional cough Neck is supple no lymphadenopathy thyromegaly Cardiovascular regular rate and rhythm, heart sounds distant. No obvious murmur Lungs diminished breath sounds bilaterally with a few coarse breath sounds at the bases Abdomen is soft, positive bowel sounds. No obvious organomegaly Extremities no cyanosis clubbing or edema Skin see findings above Data 11/14/22 03:08 11/14/22 03:08 Micro: Microbiology 11/13/22 12:45 Blood Culture - Preliminary Blood SPECIMEN COLLECTED 11/13/22 12:45 Blood Culture - Preliminary Blood SPECIMEN COLLECTED A&P Assessment and plan (1) Acute non-ST elevation myocardial infarction (NSTEMI): Patient presents with history of chest pain, atypical, but markedly elevated troponin. Delta is downward. Continue Plavix, aspirin, Lovenox therapeutic which is already initiated Echocardiogram demonstrates preserved EF Cardiology consultation appreciated Secondary to atypical nature of the discomfort, sharp, concomitant respiratory symptoms, borderline tachycardia, reduced mobility secondary to scleroderma, on chronic steroids CTA performed. No pulmonary embolism. Pneumonia noted. Hilar adenopathy noted and suggested repeat CT 3 months Lipid profile shows cholesterol of 118, LDL of 69. Statin was initiated sec ondary to non-ST elevation PR Note that propranolol was changed to metoprolol (2) Pneumonia: Appears to have community-acquired pneumonia. Continue DuoNeb every 6 hours Blood cultures have been drawn Await sputum culture Continue IV antibiotics consisting of Rocephin and azithromycin (3) Scleroderma: Continue patient's steroid. We will not escalate dose currently. (4) Acute kidney injury: Hydration cautiously considering CTA being obtained. Currently acute kidney injury is mild Plan History of hypothyroidism. TSH checked and slightly low. Reduce levothyroxine. Full code Lovenox will suffice for DVT prophylaxis Attestations Medical Necessity Statement*: Needs continued hospitalization for IV antibiotics secondary to pneumonia Coding Level of Care Code Acute Code for Chg Fwd Diagnoses Acute non-ST elevation myocardial infarction (NSTEMI) I21.4 Pneumonia J18.9 Scleroderma M34.9 Acute kidney injury N17.9
--- NOTE | 2022-11-14 09:32 | W.PM.OPSUD ---
Surgery/Procedure H&P Update DATE OF PROCEDURE: November 14, 2022 DATE H&P PERFORMED: 11/13/22 H&P UPDATE INFORMATION: I have reviewed H&P completed within last 30 days, I have examined patient prior to procedure and No changes to prior documentation PREOP DIAGNOSIS: NSTEMI PRIMARY INDICATION FOR PROCEDURE: NSTEMI PLANNED PROCEDURE: Left heart cath with possible percutaneous coronary intervention PATIENT REASSESSED PRIOR TO SEDATION, WITH NO CHANGE NOTED: Yes PHYSICAL EXAM: alert, oriented x 3, clear to auscultation bilaterally and regular rate & rhythm AIRWAY EVAL/ANESTHESIA PLAN: normal airway, ASA III, Risks, benefits & alternatives of sedation and/or procedure discussed and Patient agrees to continue as planned ADDITIONAL INFORMATION: Moderate sedation
--- NOTE | 2022-11-14 09:34 | PC.NURSE ---
to specialist employee labor relations via bed.
--- NOTE | 2022-11-14 09:55 | PM.MISC ---
Miscellaneous Note Purpose of Documentation: Brief procedure note Note: No significant disease noted in Left main, LAD, RCA. Distal left circumflex artery has moderate 40-50% stenosis. Plan: Medical therapy.
--- NOTE | 2022-11-14 10:36 | PC.NURSE ---
Report given to Andrew RN on CSU. Vitals stable. TR Band to patients right wrist clean, dry, et intact. No drainage or hematoma noted. Patient transferred to CSU via hospital bed.
--- NOTE | 2022-11-14 10:40 | PC.CHAP ---
Pastoral Care Encounter/Spiritual Assessment Type of Contact [] Declined trimming department blocker visit [] Patient/Family/Request visit [] Outpatient visit [] Follow-up visit [] Physician referral [] Code/Alert [x] Routine visit [] Staff referral [] Actively dying [] Patient sleeping [x] Family support [] [] Out of room [] Palliative care [] [] Receiving care in room [] Pre-surgical visit [] Trauma [] Long length of stay [] ICU visit [] Other: Relational/Emotional Strength [x] Patient feels connected with others/family/visitors/staff [] Distress [] Loneliness/isolation [] Abandonment Spirituality of Patient [x] Person of Erin [] Attends Yarsanism of their Erin [x] Believes in Prayer [] Reads Bible or Yazdanism materials [] There are Spiritual issues to be addressed Torch Burner Interventions [x] Prayer []x Active listening [x] Non-anxious presence [] Spiritual/emotional support [] Crisis/trauma care [] Spiritual counseling [] Bereavement support [] Provided bereavement packet [] Provided Bible/devotional materials [] Provided toy/stuffed animal, coloring book to patient or family member [] Provided Communion [] Anointing/T[place]chas [] Salvation [x] Completed spiritual assessment [] Other: Impact on Illness or Injury [] Angry [] Fearful [] Anxious [] Often cries [] Exhaustion [] Unable to work [] Unable to attend episcopal [] Unable to walk/stand [] Unable to read [] Unable to drive [] Unable to eat/drink [] Unable to sleep [] Unable to be with family [] Patient intubated [] Other: Summary Time spent with patient
[2022-11-14] MEDS: hyDRALAzine 20 mg/mL INJ 1 mL 10 MG IVP (11:53)
[2022-11-14] MEDS: LORazepam 2 mg/mL INJ 1 mL 0.5 MG IVP (12:55)
[2022-11-14] MEDS: azithromycin 500 MG in sodium chloride 0.9% 250 ML 250 MG IV (13:23)
[2022-11-14] MEDS: cefTRIAXone 1,000 MG in sodium chloride 0.9% (plus) 50 ML 100 MG IV (13:24)
[2022-11-14] MEDS: lisinopril 2.5 mg Tablet 10 MG PO (16:51)
[2022-11-14] MEDS: atorvastatin 40 mg Tablet PO (20:59)
[2022-11-15] VITALS (11 sets, daily range): BP systolic 148–176; BP diastolic 80–105; PULSE 73–85; RESP 14–19; TEMP 36.6–36.7; O2SAT 93–96
[2022-11-15 03:14] LABS: Basophils % 0.4 %; Eosinophils # 0.2 10^3/uL (0.0-0.8); Eosinophils % 2.6 %; Hematocrit 37.1 % (37.0-47.0); Hemoglobin 11.7 g/dL (11.5-15.3); Lymphocytes # 1.9 10^3/uL (0.8-4.8); Lymphocytes % 25.9 %; Mean Corpuscular HGB Conc 31.5 g/dL (30.0-36.0); Mean Corpuscular Hemoglobin 29.3 pg (28.0-34.0); Mean Corpuscular Volume 92.8 fl (81-99); Mean Platelet Volume 10.3 fL (7.4-10.4); Monocytes # 0.7 10^3/uL (0.2-0.9); Neutrophils # 4.55 10^3/uL (1.8-7.7); Neutrophils % 61.4 %; Nucleated Red Blood Cells % 0 %; Platelet Count 195 10^3/cmm (130-400); Red Cell Distribution Width 13.2 % (12.1-15.1); White Blood Count 7.4 10^3/uL (4.0-10.0)
[2022-11-15 03:40] LABS: Anion Gap 14.7 (5-19); Blood Urea Nitrogen 18 mg/dL (8-23); Calcium 8.5 mg/dL (8.5-10.5); Carbon Dioxide 22 mmol/L (22-29); Chloride 104 mmol/L (98-107); Glomerular Filtration Rate 49.8 mL/min (90-130); Glucose 92 mg/dL (65-115); Osmolality Calculated 284 mOsm/kg (285-295); Potassium 4.7 mmol/L (3.5-5.1); Sodium 136 mmol/L (136-145)
[2022-11-15] MEDS: levothyroxine 112 mcg Tablet PO (05:17)
[2022-11-15] MEDS: ipratropium 0.5 mg/2.5 mL Neb INHALATION (07:42)
[2022-11-15] MEDS: albuterol 2.5 mg/3 mL Neb INHALATION (07:42)
[2022-11-15] MEDS: metoprolol tartrate 25 mg Tablet PO (09:11)
[2022-11-15] MEDS: predniSONE 5 mg Tablet 2.5 MG PO (09:12)
[2022-11-15] MEDS: aspirin 81 mg EC Tablet PO (09:12)
[2022-11-15] MEDS: lisinopril 2.5 mg Tablet 10 MG PO (09:12)
--- NOTE | 2022-11-15 10:26 | PM.DCS ---
Discharge Providers Date of Admission: 11/13/22 13:16 Date of Discharge: November 15, 2022 Attending Provider at Admission: Heriberto Galarza MD Attending Provider at Discharge: Heriberto Galarza MD Reason for Visit Reason for Visit: CP, SOB Hospital Course Hospital Course Jeannette is a 67-year-old white female who presented to the hospital with cough, and chest discomfort. It was somewhat atypical in nature, but her troponin was quite elevated. EKG did not demonstrate any acute changes. A CTA was performed which demonstrated pneumonia, but no pulmonary embolism. She was placed on Rocephin, azithromycin, full anticoagulation, beta-june, statin, Plavix. Cardiology consultation was obtained. They recommended angiogram which occurred November 14 demonstrating nonobstructive coronary disease. They recommended maintaining her on beta-june, statin, aspirin. In regards to her pneumonia, she remained afebrile during her hospital stay and had some improvement of her cough. She did not require any oxygen. At discharge besides recommendations being followed by cardiology, she will complete 7 days of cefdinir. She needs to follow-up with her primary care provider in 3 to 5 days, cardiology 1 month. I discussed with her the medical plan, which she agreed with. She was given an opportunity to ask questions. Her dose of thyroid hormone was adjusted slightly lower for diminished TSH as well. Lisinopril was increased during hospital stay secondary to hypertension. She is to keep a recording of her blood pressures, and present this to her primary care provider at follow-up. Physical Exam Narrative: General exam no distress Neck is supple no lymphadenopathy thyromegaly Cardiovascular regular rate and rhythm without murmur Lungs slightly coarse at the bases Abdomen is soft nontender positive bowel sounds. No obvious organomegaly exam is deferred Extremities no cyanosis clubbing or edema, cap refill brisk Skin no rash Neuro no obvious focal deficits. Discharge Data Studies Completed and Pending Completed Studies During Hospitalization Category Date Time Status CTA chest [CT angio chest PE protcl [id number]] Stat Cat Scan 11/13/22 10:45 Completed MAMMAL CONTROL AGENT request for service Routine Exams 11/14/22 08:22 Completed XR chest 1V portable [id number] Stat Exams 11/13/22 07:30 Completed CV. echo complete* [id number] Routine Ultrasound 11/13/22 13:47 Completed Pending at discharge Category Date Time Status Blood Culture Stat Lab 11/13/22 12:45 Results Sputum Culture and Gram Stain Routine Lab 11/13/22 07:09 Results Radiology Impressions Chest CTA 11/13/22 00:00 IMPRESSION: 1. No pulmonary embolism. 2. Tree-in-bud airspace disease in the lower lung matthew. Consider acute endobronchial pneumonia or aspiration pneumonia. 3. Mediastinal and hilar adenopathy. Likely reactive. Follow-up chest CT in 3 months to document improvement after treatment. 4. Atherosclerosis aorta. Chest X-Ray 11/13/22 07:30 IMPRESSION: Nonspecific imaging findings, which can be seen with pulmonary congestion or pneumonia. Clinical correlation is recommended. COPD background suspected. Laboratory Results WBC 7.4 10^3/uL (4.0-10.0) 11/15/22 02:41 RBC 4.00 10^6/uL (4.1-5.3) L 11/15/22 02:41 Hgb 11.7 g/dL (11.5-15.3) 11/15/22 02:41 Hct 37.1 % (37.0-47.0) 11/15/22 02:41 MCV 92.8 fl (81-99) 11/15/22 02:41 MCH 29.3 pg (28.0-34.0) 11/15/22 02:41 MCHC 31.5 g/dL (30.0-36.0) 11/15/22 02:41 RDW 13.2 % (12.1-15.1) 11/15/22 02:41 Plt Count 195 10^3/cmm (130-400) 11/15/22 02:41 MPV 10.3 fL (7.4-10.4) 11/15/22 02:41 Neut % (Auto) 61.4 % 11/15/22 02:41 Lymph % (Auto) 25.9 % 11/15/22 02:41 [place] % (Auto) 9.0 % 11/15/22 02:41 Eos % (Auto) 2.6 % 11/15/22 02:41 Baso % (Auto) 0.4 % 11/15/22 02:41 Neut # (Auto) 4.55 10^3/uL (1.8-7.7) 11/15/22 02:41 Lymph # (Auto) 1.9 10^3/uL (0.8-4.8) 11/15/22 02:41 [place] # (Auto) 0.7 10^3/uL (0.2-0.9) 11/15/22 02:41 Eos # (Auto) 0.2 10^3/uL (0.0-0.8) 11/15/22 02:41 Baso # (Auto) 0.0 10^3/uL (0.0-0.1) 11/15/22 02:41 Nucleated RBC % (auto) 0 % 11/15/22 02:41 Nucleated RBCs # 0.0 /100WBC 11/15/22 02:41 Sodium 136 mmol/L (136-145) 11/15/22 02:41 Potassium 4.7 mmol/L (3.5-5.1) 11/15/22 02:41 Chloride 104 mmol/L (98-107) 11/15/22 02:41 Carbon Dioxide 22 mmol/L (22-29) 11/15/22 02:41 Anion Gap 14.7 (5-19) 11/15/22 02:41 BUN 18 mg/dL (8-23) 11/15/22 02:41 Creatinine 1.1 mg/dL (0.5-0.9) H 11/15/22 02:41 GFR Calculation 49.8 mL/min (90-130) L 11/15/22 02:41 Glucose 92 mg/dL (65-115) 11/15/22 02:41 Calculated Osmolality 284 mOsm/kg (285-295) L 11/15/22 02:41 Calcium 8.5 mg/dL (8.5-10.5) 11/15/22 02:41 Magnesium 1.9 mg/dL (1.7-2.3) 11/14/22 03:08 Total Bilirubin 0.2 mg/dL (0.15-1.2) 11/14/22 03:08 AST 15 U/L (0-32) 11/14/22 03:08 ALT 17 U/L (0-33) 11/14/22 03:08 Alkaline Phosphatase 62 U/L (35-105) 11/14/22 03:08 Troponin T Baseline 470 ng/L (0-10) H* 11/13/22 08:16 Troponin T 120 Minute 380.9 ng/L (0-10) H 11/13/22 10:15 Delta Troponin T -89.1 ABS# (0-10) L 11/13/22 10:15 Troponin T Hi Sens 6Hr 327.7 ng/L (0-10) H 11/13/22 14:18 Troponin T Hi Sens 6Hr Delta -142.3 ng/L (0-12) L 11/13/22 14:18 NT-Pro-B Natriuret Pep 234 pg/mL (0-125) H 11/13/22 08:16 Total Protein 6.2 g/dL (6.6-8.7) L 11/14/22 03:08 Albumin 2.8 g/dL (3.5-5.2) L 11/14/22 03:08 Globulin 3.4 g/dL (1.3-4.6) 11/14/22 03:08 Triglycerides 107 mg/dL (0-150) 11/14/22 03:08 Cholesterol 118 mg/dL (0-200) 11/14/22 03:08 LDL Cholesterol, Calc 69 mg/dL (50-129) 11/14/22 03:08 HDL Cholesterol 28 mg/dL (60-100) L 11/14/22 03:08 LDL/HDL Ratio 2.46 RATIO (0.00-3.22) 11/14/22 03:08 Cholesterol/HDL Ratio 4.21 mg/dL (0.0-4.40) 11/14/22 03:08 TSH 0.11 uIU/mL (0.27-4.20) L 11/13/22 08:17 Free T4 1.68 ng/dL (0.82-1.77) 11/14/22 03:08 Free T3 1.7 PG/ML (2.0-4.4) L 11/14/22 03:08 Vitals Last Vital Signs Temp 98.0 F 11/15/22 07:33 Pulse 80 11/15/22 07:48 Resp 16 11/15/22 07:44 BP 176/102 11/15/22 07:33 Pulse Ox 94 11/15/22 07:44 O2 Del Method 11/15/22 07:44 FiO2 21 11/15/22 08:00 Discharge Plan Discharge Patient Disposition: Home Condition: Stable Prescriptions: New aspirin 81 mg Tablet,Delayed Release (Dr/Ec) 81 mg PO DAILY Qty: 30 0RF metoprolol tartrate 25 mg Tablet 25 mg PO BID@0900,2100 Qty: 60 0RF cefdinir 300 mg capsule 300 mg PO BID 7 Days Qty: 14 0RF atorvastatin 40 mg Tablet 40 mg PO BEDTIME Qty: 30 0RF levothyroxine 112 mcg Tablet 112 mcg PO QAM Qty: 30 0RF lisinopril 10 mg tablet 10 mg PO BID Qty: 60 0RF Continued Zofran 4 mg tablet 4 mg PO Q4H PRN (Reason: Nausea) allopurinol 100 mg tablet 100 mg PO DAILY prednisone 2.5 mg tablet 2.5 mg PO DAILY hydromorphone 4 mg tablet 4 mg PO Q4H PRN (Reason: Pain) Discontinued levothyroxine 125 mcg tablet 125 mcg PO DAILY propranolol 20 mg tablet 20 mg PO BID lisinopril 2.5 mg tablet 2.5 mg PO BID Discharge Orders: Discharge Order (Routine); Ordered 11/15/22 Ordered By: Heriberto Galarza Referrals: Jody Claros MD [Physician] - 1 month Reilly Ashby MD [Staff Physician] - 4-7 days Discharge Diet: Cardiac Discharge Activity: Increase activity as tolerated Patient Instructions: Opioid Safety Activity Restrictions/Additional Instructions: Take all medicine as prescribed Follow-up with cardiology 1 month, primary care provider 3 to 5 days No medication changes Keep track of your blood pressure to bring to your primary care provider. Patient's Health Concerns: Cough, chest discomfort Assessment: Concern of non-ST elevation myocardial infarction. This appears to be a type II troponin elevation after clarification with angiogram. Nonobstructive coronary disease was noted. Pneumonia Plan of Treatment: Medical treatment for coronary disease with beta-june, aspirin, statin Finish up course of antibiotics for pneumonia Discharge Attestations Time Spent in Discharge Care*: greater than 30 min Quality Metrics Clinical Quality Measures [ No reported AMI, CVA or VTE this stay] Coding Level of Care Code Acute Chg FW DC note
[2022-11-15] MEDS: azithromycin 500 MG in sodium chloride 0.9% 250 ML 250 MG IV (10:34)
--- NOTE | 2022-11-15 11:36 | PC.NURSE ---
antibiotics given early per dr clay...he is discharging pt today
[2022-11-15] MEDS: cefTRIAXone 1,000 MG in sodium chloride 0.9% (plus) 50 ML 100 MG IV (11:39)
--- NOTE | 2022-11-15 13:33 | PC.NURSE ---
discharge instructions given and explained.pt and cg verb understanding of instructions.discharged via w/c to exit at this time.son to drive pt home.
== END 2022-11-15 13:35 | disposition home or self-care (01) | DRG 280 ==
LOC: ER 11:31 → CSU 14:15
PROVIDERS: Internal Medicine; Admitting Provider Internal Medicine; Emergency Provider Family Medicine; Visit Provider Internal Medicine
PROC: 4A023N7 Measurement of Cardiac Sampling and Pressure, Left Heart, Percutaneous Approach (ICD-10-PCS; principal; 2022-11-14 10:05)
DX: I25.10 Atherosclerotic heart disease of native coronary artery without angina pectoris (principal); J18.9 Pneumonia, unspecified organism; I21.A1 Myocardial infarction type 2; N17.9 Acute kidney failure, unspecified; Z86.16 Personal history of COVID-19; G89.29 Other chronic pain; M10.9 Gout, unspecified; I10 Essential (primary) hypertension; E03.9 Hypothyroidism, unspecified; Z87.440 Personal history of urinary (tract) infections; F17.200 Nicotine dependence, unspecified, uncomplicated; Z88.5 Allergy status to narcotic agent; Z88.0 Allergy status to penicillin; M34.9 Systemic sclerosis, unspecified
CPT/HCPCS: 36415; 71045; 71275; 80048; 80053; 80061; 83735; 83880; 84439; 84443; 84481; 84484; 85025; 87040; 87070; 87205; 93005; 93306; 93458; 94640; 96365; 96367; 96372; 96374; 99152; 99153; 99285; C1769; C1887; C1894; J0360; J0456; J0696; J1200; J1644; J1650; J2060; J2250; J3010; J3490; J7030; J7050; J7512; J7613; J7644; Q9967

== ENCOUNTER → 2022-12-13 10:48 | Outpatient (BNVA) | payer MEDICARE, MEDICAID, SELFPAY | PROVIDERS: PCP Family Medicine; Visit Provider Nurse Practitioner Family | DX: I25.10 Atherosclerotic heart disease of native coronary artery without angina pectoris (principal); I10 Essential (primary) hypertension; F17.210 Nicotine dependence, cigarettes, uncomplicated; Z79.82 Long term (current) use of aspirin | CPT/HCPCS: 99214 ==

== ENCOUNTER 2022-12-21 11:13 | Outpatient (CLI) | payer MEDICARE, MEDICAID, SELFPAY ==
--- NOTE | 2022-12-21 11:34 | XR_ITS ---
WS: [id number] Right ankle, 2 views, 12/21/2022 Clinical Data: ankle pain Comparison: None. Findings: No fractures or dislocations are seen. The ankle mortise is normal. The talus and calcaneus are unrem arkable. No soft tissue swelling over the medial or lateral malleolus is seen. There is a plantar spur and an Achilles spur. XR/XR ankle RT 2V [id number] Impression: Negative right ankle.
== END 2022-12-21 11:14 | disposition home or self-care (01) ==
LOC: RAD 11:17
PROVIDERS: PCP Family Medicine; Visit Provider Family Medicine
DX: M25.571 Pain in right ankle and joints of right foot (principal)
CPT/HCPCS: 73600

== ENCOUNTER → 2022-12-27 10:57 | Outpatient (BNVA) | payer MEDICARE, MEDICAID, SELFPAY | PROVIDERS: PCP Family Medicine; Visit Provider Podiatrist Foot & Ankle Surgery | DX: L85.1 Acquired keratosis [keratoderma] palmaris et plantaris (principal) | CPT/HCPCS: 17110 ==

== ENCOUNTER → 2023-04-25 09:12 | Outpatient (BNVA) | payer MEDICARE, MEDICAID, SELFPAY | PROVIDERS: PCP Family Medicine; Visit Provider Podiatrist Foot & Ankle Surgery | DX: L85.1 Acquired keratosis [keratoderma] palmaris et plantaris (principal) | CPT/HCPCS: 17110 ==

== ENCOUNTER → 2023-06-27 09:12 | Outpatient (BNVA) | payer MEDICARE, MEDICAID, SELFPAY | PROVIDERS: PCP Family Medicine; Visit Provider Podiatrist Foot & Ankle Surgery | DX: L85.1 Acquired keratosis [keratoderma] palmaris et plantaris (principal) | CPT/HCPCS: 17110 ==

== ENCOUNTER → 2023-06-28 09:10 | Outpatient (BNVA) | payer MEDICARE, MEDICAID, SELFPAY | PROVIDERS: PCP Family Medicine; Visit Provider Family Medicine | DX: M34.9 Systemic sclerosis, unspecified (principal); I10 Essential (primary) hypertension; L85.1 Acquired keratosis [keratoderma] palmaris et plantaris | CPT/HCPCS: 80053; 84443; 84550; 85025 ==

== ENCOUNTER → 2023-09-12 09:21 | Outpatient (BNVA) | payer MEDICARE, MEDICAID, SELFPAY | PROVIDERS: PCP Family Medicine; Visit Provider Podiatrist Foot & Ankle Surgery | DX: L85.1 Acquired keratosis [keratoderma] palmaris et plantaris (principal); M79.671 Pain in right foot; M79.672 Pain in left foot | CPT/HCPCS: 17110 ==

== ENCOUNTER → 2023-11-28 09:39 | Outpatient (BNVA) | payer MEDICARE, MEDICAID, SELFPAY | PROVIDERS: PCP Family Medicine; Visit Provider Podiatrist Foot & Ankle Surgery | DX: Z01.818 Encounter for other preprocedural examination (principal); R09.89 Other specified symptoms and signs involving the circulatory and respiratory systems; Z87.891 Personal history of nicotine dependence; L85.1 Acquired keratosis [keratoderma] palmaris et plantaris; L60.3 Nail dystrophy; M79.671 Pain in right foot; M79.672 Pain in left foot | CPT/HCPCS: 17110; 99213 ==

== ENCOUNTER 2023-12-13 09:42 | Outpatient (CLI) | payer MEDICARE, MEDICAID, SELFPAY ==
--- NOTE | 2023-12-13 10:15 | USCV_ITS ---
Jeannette Perry Age: 68 Gender: F : 1955 Exam Date: 12/13/2023 11:22 Ordering Phys: Jeffry Jiménez DPM Technologist: Trey Cotton Exam Location: [facility] [place] Indication: Decreased Pedal Pulses RIGHT LEFT Brachial 117.00 mmHg Brachial 119.00 mmHg Pressure (mmHg) Waveform Pressure (mmHg) Waveform 123.00 High Thigh 129.00 119.00 Below Knee 122.00 119.00 PRESSER COTTON GINNING 126.00 112.00 DPA 116.00 1.00 Ankle/Brachial Index 1.06 60.00 Pre-Exercise Toe Pressure 49.00 Pre-Exercise Toe/Brachial Index 0.41 0.50 FINDINGS Resting LUIS 1.0 on the right side and 1.06 on the left side Resting TBI of 0.5 on the right and 0.4 on the left PVR waveforms appear to be normal bilaterally CONCLUSIONS Normal LUIS with a slightly diminished TBI's bilaterally Normal PVR waveforms bilaterally Features may suggest mild to moderate distal arterial disease No similar previous studies are available for comparison Dr Shi Ochoa MD [facility] (Electronically Signed) Final Date: 14 December 2023 16:55 S
== END 2023-12-13 09:43 | disposition home or self-care (01) ==
LOC: RAD 09:42
PROVIDERS: PCP Family Medicine; Visit Provider Podiatrist Foot & Ankle Surgery
DX: Z01.818 Encounter for other preprocedural examination (principal); R09.89 Other specified symptoms and signs involving the circulatory and respiratory systems; Z87.891 Personal history of nicotine dependence
CPT/HCPCS: 93923

== ENCOUNTER → 2024-01-01 11:48 | Outpatient (BNVA) | payer MEDICARE, MEDICAID, SELFPAY | PROVIDERS: PCP Family Medicine; Visit Provider Family Medicine | DX: R30.0 Dysuria (principal) | CPT/HCPCS: 81000; 87086 ==

== ENCOUNTER → 2024-01-15 13:45 | Outpatient (BNVA) | payer MEDICARE, MEDICAID, SELFPAY | PROVIDERS: PCP Family Medicine; Visit Provider Podiatrist Foot & Ankle Surgery | DX: L85.1 Acquired keratosis [keratoderma] palmaris et plantaris (principal); L60.3 Nail dystrophy; Z87.891 Personal history of nicotine dependence; I73.9 Peripheral vascular disease, unspecified | CPT/HCPCS: 11721; 17110 ==

== ENCOUNTER → 2024-03-11 13:11 | Outpatient (BNVA) | payer MEDICARE, MEDICAID, SELFPAY | PROVIDERS: PCP Family Medicine; Visit Provider Podiatrist Foot & Ankle Surgery | DX: L85.1 Acquired keratosis [keratoderma] palmaris et plantaris (principal); I73.9 Peripheral vascular disease, unspecified; L60.3 Nail dystrophy; Z87.891 Personal history of nicotine dependence | CPT/HCPCS: 11721; 17110 ==

== ENCOUNTER → 2024-03-27 10:39 | Outpatient (BNVA) | payer SELFPAY | PROVIDERS: PCP Family Medicine; Visit Provider Family Medicine | DX: I10 Essential (primary) hypertension (principal); M34.9 Systemic sclerosis, unspecified; E03.9 Hypothyroidism, unspecified; R13.10 Dysphagia, unspecified; E11.9 Type 2 diabetes mellitus without complications | CPT/HCPCS: 80053; 80061; 84443; 85025 ==

== ENCOUNTER 2024-05-14 11:00 | Outpatient (CLI) | payer MEDICARE, MEDICAID, SELFPAY ==
--- NOTE | 2024-05-14 11:00 | FL_ITS ---
WS: [id number] Modified barium swallow, 05/14/2024 Clinical Data: Difficulty swallowing Comparison: Barium swallow, 12/24/2012 Fluoroscopy time: 1min [id number] # of spot films: 1 Findings: Patient ingested the numerous material without hesitation. There was a posterior hypopharyngeal inden tation probably achalasia which impeded the flow of material. There is minimal oral residue. There is no significant pharyngeal residue. The barium tablet was propelled normally into the stomach without hesitation. FL/FL barium swallow modifd [id number] Impression: Posterior hypopharyngeal indentation which is probably pharyngeal achalasia whi ch impedes the flow of material.
== END 2024-05-14 11:01 | disposition home or self-care (01) ==
PROVIDERS: PCP Family Medicine; Visit Provider Family Medicine
DX: R13.10 Dysphagia, unspecified (principal); J39.2 Other diseases of pharynx
CPT/HCPCS: 74230; 92611

== ENCOUNTER 2024-06-04 14:27 | Outpatient (CLI) | payer MEDICARE, MEDICAID, SELFPAY ==
--- NOTE | 2024-06-04 14:34 | XRR_ITS ---
PROCEDURE INFORMATION: Exam: XR Chest Exam date and time: 06/04/2024 2:41 PM Age: 68 years old Clinical indication: Cough TECHNIQUE: Imaging protocol: Radiologic exam of the chest. Views: 2 views. COMPARISON: CT angio chest PE protcl [id number] 11/13/2022 3:27 PM FINDINGS: Lungs: There is no consolidation. There is centrilobular emphysema in the upper lungs. Pleural spaces: There is no pleural effusion or pneumothorax. Heart/Mediastinum: Cardiomediastinal contours are unremarkable. Bones/joints: Bones are unremarkable. XR/XR chest 2V* [id number] IMPRESSION: No acute findings.
== END 2024-06-04 14:28 | disposition home or self-care (01) ==
LOC: RAD 14:31
PROVIDERS: PCP Family Medicine; Visit Provider Family Medicine
DX: R05.9 Cough, unspecified (principal); I10 Essential (primary) hypertension; R53.83 Other fatigue; R13.10 Dysphagia, unspecified; J18.9 Pneumonia, unspecified organism; J43.2 Centrilobular emphysema
CPT/HCPCS: 71046; 80053; 81000; 83880; 84443; 85025; 86140; 86618; 86666; 86757; 87086

== ENCOUNTER → 2024-06-11 09:30 | Outpatient (BNVA) | payer MEDICARE, MEDICAID, SELFPAY | PROVIDERS: PCP Family Medicine; Visit Provider Podiatrist Foot & Ankle Surgery | DX: L60.8 Other nail disorders (principal); L85.1 Acquired keratosis [keratoderma] palmaris et plantaris; L60.3 Nail dystrophy; Z87.891 Personal history of nicotine dependence; I73.9 Peripheral vascular disease, unspecified | CPT/HCPCS: 11721; 17110 ==

== ENCOUNTER 2024-08-05 12:21 | Outpatient (CLI) | payer MEDICARE, MEDICAID, SELFPAY ==
--- NOTE | 2024-08-05 12:30 | MM_ITS ---
WS: [id number] VIEWS: MLO and CC views both breasts. 3D digital tomosynthesis is also included in this exam. Baseline study Findings: The breasts are heterogeneously dense, which may obscure small masses. FINDINGS 3 mm partially obscured nodular density seen in the RIGHT breast between the 12 and 1 o'iliana ck position at mid depth. Compression spot images and regional ultrasound would be suggested for foll ow-up. No significant finding in the LEFT breast. MM/MM scr BI tomosynthesis [id number] Impression: BI-RADS: 0- Incomplete: Need additional imaging evaluation. FOLLOW-UP: Need Additional Imaging This mammogram was also analyzed by the Computer Aided Detection System R2 Imag e Associate Director Regulatory Affairs.
--- NOTE | 2024-08-05 13:00 | XR_ITS ---
WS: [id number] SCREENING DEXA SCAN [employer] CLINICAL INFORMATION: screening COMPARISON: None. FINDINGS: The L1-L4 bone mineral density measures 0.836 g/cm2. This corresponds to a T score score of -2.9 and Z score of -0.9. Left femoral neck bone mineral density measures 0.603 g/cm2. This corresponds to a T score of -3.2 an d Z score of -1.7. Right femoral neck bone mineral density measures 0.598 g/cm2. This corresponds to a T score -3.2of an d Z score of -1.7. Mean femoral neck bone mineral density measures 0.601 g/cm2. This corresponds to a T score of -3.2 an d Z score of -1.7. XR/XR DEXA axial skeleton* 22855 IMPRESSION: Osteoporosis lumbar spine. Osteoporosis femoral necks. Patient's FRAX calculated 10 year probability for major osteoporotic fracture i s 22.7% and osteoporotic hip fracture is 12.4%.
== END 2024-08-05 12:22 | disposition home or self-care (01) ==
LOC: RAD 12:22
PROVIDERS: PCP Family Medicine; Visit Provider Family Medicine
DX: Z12.31 Encounter for screening mammogram for malignant neoplasm of breast (principal); Z13.820 Encounter for screening for osteoporosis; R92.333 Mammographic heterogeneous density, bilateral breasts; N63.12 Unspecified lump in the right breast, upper inner quadrant; M81.0 Age-related osteoporosis without current pathological fracture
CPT/HCPCS: 77063; 77067; 77080

== ENCOUNTER → 2024-09-02 12:17 | Outpatient (BNVA) | payer MEDICARE, MEDICAID, SELFPAY | PROVIDERS: PCP Family Medicine; Visit Provider Family Medicine | DX: M81.0 Age-related osteoporosis without current pathological fracture (principal) | CPT/HCPCS: 80048; 82306; 83735 ==

== ENCOUNTER → 2024-09-10 10:48 | Outpatient (BNVA) | payer MEDICARE, MEDICAID, SELFPAY | PROVIDERS: PCP Family Medicine; Visit Provider Podiatrist Foot & Ankle Surgery | DX: L85.1 Acquired keratosis [keratoderma] palmaris et plantaris (principal); L60.3 Nail dystrophy; Z87.891 Personal history of nicotine dependence; I73.9 Peripheral vascular disease, unspecified; L60.8 Other nail disorders | CPT/HCPCS: 11721; 17110 ==

== ENCOUNTER → 2024-11-12 14:30 | Outpatient (BNVA) | payer MEDICARE, MEDICAID, SELFPAY | PROVIDERS: PCP Family Medicine; Visit Provider Podiatrist Foot & Ankle Surgery | DX: L85.1 Acquired keratosis [keratoderma] palmaris et plantaris (principal); L60.3 Nail dystrophy; Z87.891 Personal history of nicotine dependence; I73.9 Peripheral vascular disease, unspecified | CPT/HCPCS: 11721; 17110 ==

== ENCOUNTER → 2025-01-07 13:38 | Outpatient (BNVA) | payer MEDICARE, MEDICAID, SELFPAY | PROVIDERS: PCP Family Medicine; Visit Provider Podiatrist Foot & Ankle Surgery | DX: I73.9 Peripheral vascular disease, unspecified (principal); L60.3 Nail dystrophy; L85.1 Acquired keratosis [keratoderma] palmaris et plantaris; Z87.891 Personal history of nicotine dependence | CPT/HCPCS: 11721; 17110 ==

== ENCOUNTER → 2025-02-18 11:24 | Outpatient (BNVA) | payer MEDICARE, MEDICAID, SELFPAY | PROVIDERS: PCP Family Medicine; Visit Provider Family Medicine | DX: R07.9 Chest pain, unspecified (principal); I25.10 Atherosclerotic heart disease of native coronary artery without angina pectoris; L85.1 Acquired keratosis [keratoderma] palmaris et plantaris | CPT/HCPCS: 80053; 84443; 84484; 85025; 86140 ==

== ENCOUNTER → 2025-03-18 12:55 | Outpatient (BNVA) | payer MEDICARE, MEDICAID, SELFPAY | PROVIDERS: PCP Family Medicine; Visit Provider Internal Medicine | DX: I25.10 Atherosclerotic heart disease of native coronary artery without angina pectoris (principal); I10 Essential (primary) hypertension; Z79.82 Long term (current) use of aspirin; F17.200 Nicotine dependence, unspecified, uncomplicated; R06.02 Shortness of breath; R07.9 Chest pain, unspecified | CPT/HCPCS: 80048; 85025; 86140; 87070; 87075; 87077; 87184; 87205; 99214 ==

== ENCOUNTER → 2025-03-25 12:07 | Outpatient (BNVA) | payer MEDICARE, MEDICAID, SELFPAY | PROVIDERS: PCP Family Medicine; Visit Provider Family Medicine | DX: R51.9 Headache, unspecified (principal); R53.83 Other fatigue; R50.9 Fever, unspecified | CPT/HCPCS: 86003; 86008; 86618; 86666; 86757 ==

== ENCOUNTER → 2025-04-07 13:52 | Outpatient (BNVA) | payer MEDICARE, MEDICAID, SELFPAY | PROVIDERS: PCP Family Medicine; Visit Provider Podiatrist Foot & Ankle Surgery | DX: I73.9 Peripheral vascular disease, unspecified (principal); L60.3 Nail dystrophy; L85.1 Acquired keratosis [keratoderma] palmaris et plantaris; L60.8 Other nail disorders; Z87.891 Personal history of nicotine dependence | CPT/HCPCS: 11721; 17110 ==

== ENCOUNTER 2025-04-27 08:21 | Outpatient (CLI) | payer OTHER, MEDICAID, SELFPAY ==
--- NOTE | 2025-04-27 08:30 | USCV_ITS ---
Jeannette Perry Age: 69 Gender: F : 1955 Exam Date: 04/27/2025 08:36 Ordering Phys: Bonifacio Lala M.D ([email or web address]) Technologist: KIRA Exam Location: [facility] [place] Indication: Cp, SoB BP: 108 / 64 HR: 73 Rhythm: Sinus Technical Quality: Adequate MEASUREMENTS (Male / Female) Normal Values 2D ECHO LV Diastolic Diameter PLAX 3.3 cm 4.2 - 5.9 / 3.9 - 5.3 cm IVS Diastolic Thickness 0.9 cm 0.6 - 1.0 / 0.6 - 0.9 cm IVS Systolic Thickness 1.1 cm LVPW Diastolic Thickness 0.9 cm 0.6 - 1.0 / 0.6 - 0.9 cm LVPW Systolic Thickness 0.8 cm LVOT Diameter 1.9 cm LV Ejection Fraction 2D Teich 53.4 % LV Ejection Fraction MOD 4C 64.2 % LV Ejection Fraction MOD 2C 66.6 % LV Ejection Fraction 2C AL 67.4 % LA Diameter 2.5 cm RA Systolic Volume 4C AL 17.1 ml RA Systolic Volume 4C MOD 16.5 ml LA Sys Volume AL 23.1 cm cubed LA Sys Volume Index AL 15.0 cm cubed/m squared Aorta at Sinotubular Diameter 2.1 cm IVC Diameter 1.6 cm M-MODE LA Ao Ratio MM 1.5 AV Cusp Separation MM 1.4 cm DOPPLER AV Peak Velocity 134.0 cm/s LVOT Peak Velocity 91.0 cm/s AV Area Cont Eq vti 2.0 cm squared AV Area Cont Eq pk 2.0 cm squared MV Peak Velocity 103.0 cm/s MV Area PHT 4.8 cm squared Mitral E to A Ratio 0.9 TV Peak Velocity 165.5 cm/s TR Peak Velocity 252.0 cm/s TR Peak Gradient 25.4 mmHg TV Peak E Velocity 85.0 cm/s PV Peak Velocity 78.0 cm/s FINDINGS Left Ventricle Left ventricular is normal in size. LV systolic function is normal with EF of 60-65%. No regional wall motion abnormalities are seen. Grade 1 diastolic dysfunction Right Ventricle Normal in size and function Right Atrium Normal in size Left Atrium Normal in size Mitral Valve Structurally normal mitral valve. Mild mitral regurgitation Aortic Valve Grossly normal. No significant stenosis or regurgitation. Tricuspid Valve Insufficient TR jet to calculate RVSP Pulmonic Valve Not well visualized Pericardium Normal Aorta Normal in size IVC Appears to be normal CONCLUSIONS LV systolic function is normal with EF of 60-65% Grade 1 diastolic dysfunction Mild mitral regurgitation Bonifacio Lala MD (Electronically Signed) Final Date: 01 May 2025 09:29 S
== END 2025-04-27 08:22 | disposition home or self-care (01) ==
LOC: RAD 08:23
PROVIDERS: PCP Family Medicine; Visit Provider Internal Medicine
DX: R07.9 Chest pain, unspecified (principal); R06.02 Shortness of breath; R93.1 Abnormal findings on diagnostic imaging of heart and coronary circulation; I34.0 Nonrheumatic mitral (valve) insufficiency
CPT/HCPCS: 93306

== ENCOUNTER → 2025-06-16 07:56 | Outpatient (BNVA) | payer OTHER, MEDICAID, SELFPAY | PROVIDERS: PCP Family Medicine; Visit Provider Podiatrist Foot & Ankle Surgery | DX: I73.9 Peripheral vascular disease, unspecified (principal); L60.3 Nail dystrophy; L85.1 Acquired keratosis [keratoderma] palmaris et plantaris; Z87.891 Personal history of nicotine dependence | CPT/HCPCS: 11721 ==

== ENCOUNTER → 2025-06-24 14:31 | Outpatient (BNVA) | payer OTHER, MEDICAID, SELFPAY | PROVIDERS: PCP Family Medicine; Visit Provider Internal Medicine | DX: I25.10 Atherosclerotic heart disease of native coronary artery without angina pectoris (principal); R07.9 Chest pain, unspecified; I10 Essential (primary) hypertension; F17.210 Nicotine dependence, cigarettes, uncomplicated | CPT/HCPCS: 99214 ==

== ENCOUNTER → 2025-09-22 10:42 | Outpatient (BNVA) | payer OTHER, MEDICAID, SELFPAY | PROVIDERS: PCP Family Medicine; Visit Provider Podiatrist Foot & Ankle Surgery | DX: I73.9 Peripheral vascular disease, unspecified (principal); L60.3 Nail dystrophy; L85.1 Acquired keratosis [keratoderma] palmaris et plantaris; L84 Corns and callosities; Z87.891 Personal history of nicotine dependence | CPT/HCPCS: 11721; 17110 ==